=== PATIENT | male | born 1955 | race Caucasian/White ===

== ENCOUNTER 2022-10-11 20:49 | Inpatient (IN) | payer OTHER, MEDICAID ==
[~2022-10-11] VITALS: Ht 170.2 cm; Wt 55.1 kg
[~2022-10-11 20:49] MED LIST: TNFMISC; VICOT PO
[2022-10-11 22:12] LABS: COVID AG,FIA SOURCE NASOPHARYNGEAL
[2022-10-11 22:14] LABS: BASOPHILS % (AUTO) 0.2 % (0.0-2.0); EOSINOPHILS % (AUTO) 4.2 % (1.0-6.0); HEMOGLOBIN 10.2 g/dL (13.5-17.5); LYMPHOCYTES # (AUTO) 1.4 K/uL (1.0-4.8); LYMPHOCYTES % (AUTO) 17.8 % (22.0-44.0); MEAN CORPUSCULAR HEMOGLOBIN 27.6 pg (26.0-34.0); MEAN CORPUSCULAR HGB CONC 31.8 G/dL (31.0-37.0); MEAN CORPUSCULAR VOLUME 87 fL (80-100); MONOCYTES # (AUTO) 1.1 K/uL (0.1-1.0); MONOCYTES % (AUTO) 13.8 % (2.0-9.0); PLATELET COUNT (AUTO) 330 K/uL (150-450); RED BLOOD CELL COUNT(AUTO) 3.69 MIL/uL (4.50-5.90)
[2022-10-11 22:40] LABS: ANION GAP 10 mmol/L (8-16); CALCIUM, TOTAL 9.4 mg/dL (8.8-10.5); CARBON DIOXIDE 29 mmol/L (22-29); CHLORIDE 102 mmol/L (98-107); GLUCOSE,RANDOM 77 mg/dL (70-110); POTASSIUM 3.9 mmol/L (3.5-5.1); SODIUM SERUM 141 mmol/L (136-145); UREA NITROGEN, BLOOD 25 mg/dL (7-18)
[2022-10-11 22:41] LABS: GLOMERULAR FILTR. RATE CALC > 60 mL/min (>60)
[2022-10-11 22:45] LABS: ALANINE AMINOTRANSFERASE 20 U/L (12-78); ALBUMIN 2.9 g/dL (3.4-5.0); ALKALINE PHOSPHATASE 100 U/L (46-116); ASPARTATE AMINOTRANSFERASE 15 U/L (15-37); BILIRUBIN,TOTAL 0.1 mg/dL (0.1-1.0); TOTAL PROTEIN, SERUM 6.7 g/dL (6.4-8.2)
[2022-10-11] MEDS ORDERED: HALOPERIDOL LACTATE 5 MG/ML VIAL IM ONE (22:45)
[2022-10-11] MEDS ORDERED: DiphenhydrAMINE HCL 50 MG/ML VIAL IM ONE (22:45)
[2022-10-11] MEDS ORDERED: LORazepam 2 MG/ML VIAL IM ONE (22:45)
[2022-10-12 00:34] LABS: AMPHET/METH SCREEN,URINE NEGATIVE (NEGATIVE); BARBITURATE SCREEN, URINE NEGATIVE (NEGATIVE); BENZODIAZEPINES SCREEN,URINE NEGATIVE (NEGATIVE); CANNABINOID SCREEN,URINE NEGATIVE (NEGATIVE); COCAINE SCREEN,URINE NEGATIVE (NEGATIVE); METHADONE SCREEN, URINE NEGATIVE (NEGATIVE); OPIATE SCREEN,URINE NEGATIVE (NEGATIVE)
[2022-10-12 00:39] LABS: PHENCYCLIDINE SCREEN,URINE NEGATIVE (NEGATIVE)
[2022-10-12 01:17] VITALS: BP 135/79
[2022-10-12 01:37] VITALS: BP 135/79
[2022-10-12 02:09] VITALS: BP 135/79
[2022-10-12] MEDS ORDERED: NICOTINE 14 MG/24 HOUR PATCH TD PRN ×2 (06:00→07:00)
[2022-10-12] MEDS ORDERED: PETROLATUM,WHITE 28 GM JELLY TP PRN (07:00)
[2022-10-12] MEDS ORDERED: MAG HYDROX/AL HYDROX/SIMETH ES 30 ML SUSPENSION UDCUP PO PRN (07:00)
[2022-10-12] MEDS ORDERED: ACETAMINOPHEN 325 MG TABLET PO PRN (07:00)
[2022-10-12] MEDS ORDERED: ALBUTEROL SULFATE HFA 90 MCG/PUFF 8 GM INHALER IH PRN (07:00)
[2022-10-12] MEDS ORDERED: ONDANSETRON HCL 4 MG TABLET PO PRN (07:00)
[2022-10-12] MEDS ORDERED: GuaiFENesin/D-METHORPHAN [SUGAR-FREE] 200-20MG/10 ML SYRUP UDCUP PO PRN (07:00)
[2022-10-12] MEDS ORDERED: MAGNESIUM HYDROXIDE SUSPENSION 30 ML UDCUP PO PRN (07:00)
[2022-10-12] MEDS ORDERED: DOCUSATE SODIUM 100 MG CAPSULE PO PRN (07:00)
[2022-10-12] MEDS ORDERED: CloNIDine HCL 0.1 MG TABLET PO PRN (07:00)
[2022-10-12] MEDS ORDERED: IBUPROFEN 400 MG TABLET PO PRN (07:00)
[2022-10-12] MEDS ORDERED: LOPERAMIDE HCL 2 MG CAPSULE PO PRN (07:00)
[2022-10-12 13:50] VITALS: BP 123/80
[2022-10-12] MEDS: RisperiDONE 1 MG TABLET PO SCH (16:43)
[2022-10-13] MEDS: ZOLPIDEM TARTRATE 10 MG TABLET PO PRN (02:30)
[2022-10-13] MEDS: RisperiDONE 1 MG TABLET PO SCH ×2 (08:32→17:22)
[2022-10-13 08:42] VITALS: BP 139/80
[2022-10-13] MEDS: LORazepam 2 MG TABLET PO PRN (09:30)
[2022-10-13] MEDS ORDERED: ALBUTEROL SULFATE/IPRATROPIUM 100-20 MCG/SPRAY 4 GM INHALER IH PRN (13:15)
[2022-10-13 16:44] VITALS: BP 135/81
[2022-10-13] MEDS: LevETIRAcetam 500 MG TABLET PO SCH (17:22)
[2022-10-14] MEDS: LEVOTHYROXINE SODIUM 125 MCG TABLET PO SCH (06:30)
[2022-10-14 08:36] VITALS: BP 160/95
[2022-10-14] MEDS: RisperiDONE 1 MG TABLET PO SCH ×2 (09:34→16:29)
[2022-10-14] MEDS: LevETIRAcetam 500 MG TABLET PO SCH ×2 (09:34→16:29)
[2022-10-15] MEDS: LEVOTHYROXINE SODIUM 125 MCG TABLET PO SCH (06:38)
[2022-10-15 08:17] VITALS: BP 97/66
[2022-10-15] MEDS: RisperiDONE 1 MG TABLET PO SCH ×2 (09:43→17:10)
[2022-10-15] MEDS: LevETIRAcetam 500 MG TABLET PO SCH ×2 (09:43→17:00)
[2022-10-15] MEDS: HALOPERIDOL 5 MG TABLET PO PRN (20:02)
[2022-10-15] MEDS: LORazepam 2 MG TABLET PO PRN (20:02)
[2022-10-16] MEDS: LEVOTHYROXINE SODIUM 125 MCG TABLET PO SCH (06:47)
[2022-10-16 08:38] VITALS: BP 100/68
[2022-10-16] MEDS: RisperiDONE 1 MG TABLET PO SCH ×2 (09:00→16:25)
[2022-10-16] MEDS: LevETIRAcetam 500 MG TABLET PO SCH ×2 (09:00→16:25)
[2022-10-17] MEDS: HALOPERIDOL 5 MG TABLET PO PRN ×2 (02:30→20:33)
[2022-10-17] MEDS: LORazepam 2 MG TABLET PO PRN ×2 (02:30→20:33)
[2022-10-17] MEDS: LEVOTHYROXINE SODIUM 125 MCG TABLET PO SCH (06:40)
[2022-10-17 08:03] LABS: COVID AG,FIA SOURCE NASAL SWAB
[2022-10-17] MEDS: RisperiDONE 1 MG TABLET PO SCH ×2 (08:54→17:35)
[2022-10-17] MEDS: LevETIRAcetam 500 MG TABLET PO SCH ×2 (08:54→17:34)
[2022-10-17 13:29] VITALS: BP 120/73
[2022-10-17 16:20] VITALS: BP 105/63
[2022-10-17] MEDS: ZOLPIDEM TARTRATE 10 MG TABLET PO PRN (21:45)
[2022-10-18] MEDS: LEVOTHYROXINE SODIUM 125 MCG TABLET PO SCH (05:57)
[2022-10-18 08:24] VITALS: BP 94/62
[2022-10-18] MEDS: RisperiDONE 1 MG TABLET PO SCH ×2 (08:26→17:03)
[2022-10-18] MEDS: LevETIRAcetam 500 MG TABLET PO SCH ×2 (08:27→17:03)
[2022-10-18 16:21] VITALS: BP 131/91
[2022-10-18 20:49] VITALS: BP 116/75
[2022-10-18] MEDS: LORazepam 2 MG TABLET PO PRN (22:39)
[2022-10-18] MEDS: HALOPERIDOL 5 MG TABLET PO PRN (22:39)
[2022-10-19] MEDS: LEVOTHYROXINE SODIUM 125 MCG TABLET PO SCH (06:47)
[2022-10-19 08:30] VITALS: BP 110/67
[2022-10-19] MEDS: RisperiDONE 1 MG TABLET PO SCH ×2 (09:37→17:24)
[2022-10-19] MEDS: LevETIRAcetam 500 MG TABLET PO SCH ×2 (09:37→17:24)
[2022-10-19] MEDS: LORazepam 2 MG TABLET PO PRN (23:29)
[2022-10-20] MEDS: LEVOTHYROXINE SODIUM 125 MCG TABLET PO SCH (06:50)
[2022-10-20] MEDS: LevETIRAcetam 500 MG TABLET PO SCH ×2 (09:00→17:31)
[2022-10-20] MEDS: RisperiDONE 1 MG TABLET PO SCH ×2 (09:00→17:31)
[2022-10-20 16:02] VITALS: BP 122/76
[2022-10-20] MEDS: LORazepam 2 MG TABLET PO PRN (19:15)
[2022-10-20] MEDS: HALOPERIDOL 5 MG TABLET PO PRN (19:15)
[2022-10-20] MEDS: ZOLPIDEM TARTRATE 10 MG TABLET PO PRN (21:43)
[2022-10-21] MEDS: LEVOTHYROXINE SODIUM 125 MCG TABLET PO SCH (06:17)
[2022-10-21 08:21] VITALS: BP 115/78
[2022-10-21] MEDS: RisperiDONE 1 MG TABLET PO SCH ×2 (09:19→16:22)
[2022-10-21] MEDS: LevETIRAcetam 500 MG TABLET PO SCH ×2 (09:19→16:22)
[2022-10-21 16:10] VITALS: BP 131/83
[2022-10-21 19:21] LABS: GLUCOMETER DEV NAME(LOC) 3EX.2; GLUCOSE,POINT OF CARE 166 MG/DL (70-110)
[2022-10-21] MEDS ORDERED: SCOPOLAMINE HYDROBROMIDE 1 MG/72 HOUR PATCH TD SCH (20:00)
[2022-10-21] MEDS: ZOLPIDEM TARTRATE 10 MG TABLET PO PRN (20:56)
[2022-10-21] MEDS: SCOPOLAMINE HYDROBROMIDE 1 MG/72 HOUR PATCH TD SCH (20:57)
[2022-10-22 00:30] VITALS: BP 124/79
[2022-10-22] MEDS: LEVOTHYROXINE SODIUM 125 MCG TABLET PO SCH (06:12)
[2022-10-22] MEDS: RisperiDONE 1 MG TABLET PO SCH ×2 (08:39→17:01)
[2022-10-22] MEDS: LevETIRAcetam 500 MG TABLET PO SCH ×2 (08:40→17:01)
[2022-10-22 09:02] VITALS: BP 109/65
[2022-10-22 16:46] VITALS: BP 113/77
[2022-10-22] MEDS: ZOLPIDEM TARTRATE 10 MG TABLET PO PRN (23:34)
[2022-10-23] MEDS: LEVOTHYROXINE SODIUM 125 MCG TABLET PO SCH (06:23)
[2022-10-23 08:22] VITALS: BP 113/64
[2022-10-23] MEDS: LevETIRAcetam 500 MG TABLET PO SCH ×2 (09:05→17:38)
[2022-10-23] MEDS: RisperiDONE 1 MG TABLET PO SCH ×2 (09:07→17:38)
[2022-10-23 13:17] VITALS: BP 158/78
[2022-10-23 14:17] VITALS: BP 91/59
[2022-10-23 16:04] VITALS: BP 114/75
[2022-10-23] MEDS: ZOLPIDEM TARTRATE 10 MG TABLET PO PRN (21:55)
[2022-10-24] MEDS: LEVOTHYROXINE SODIUM 125 MCG TABLET PO SCH (06:28)
[2022-10-24 08:02] LABS: COVID AG,FIA SOURCE NASAL SWAB
[2022-10-24] MEDS: RisperiDONE 1 MG TABLET PO SCH ×2 (09:11→17:00)
[2022-10-24] MEDS: LevETIRAcetam 500 MG TABLET PO SCH ×2 (09:11→17:00)
[2022-10-24] MEDS: SCOPOLAMINE HYDROBROMIDE 1 MG/72 HOUR PATCH TD SCH (09:13)
[2022-10-24 16:10] VITALS: BP 116/71
[2022-10-24 20:53] LABS: GLUCOMETER DEV NAME(LOC) 3E.I 2; GLUCOSE,POINT OF CARE 149 MG/DL (70-110)
[2022-10-24] MEDS ORDERED: LEVO125 PO ×2 (21:23→21:24)
[2022-10-24] MEDS ORDERED: LEVE500T20 PO ×2 (21:24→21:25)
[2022-10-24] MEDS ORDERED: MULT-1239 PO (21:25)
[2022-10-24] MEDS ORDERED: SCOP1PAT12 TP (21:26)
[2022-10-24] MEDS ORDERED: RISP2TAB45 PO (21:28)
[2022-10-25] MEDS ORDERED: MULTIVITAMINS WITH MINERALS, THERAPEUTIC TABLET PO SCH (09:00)
== END 2022-10-24 21:25 | disposition short-term general hospital (02) | DRG 885 ==
LOC: EMS 20:56 → 3EX 10-12 00:36
PROVIDERS: ADMIT Psychiatry & Neurology Child & Adolescent Psychiatry; ATTEND Psychiatry & Neurology Child & Adolescent Psychiatry
DX: F20.0 Paranoid schizophrenia (principal); E43 Unspecified severe protein-calorie malnutrition; J96.91 Respiratory failure, unspecified with hypoxia; Z68.1 Body mass index [BMI] 19.9 or less, adult; Z20.822 Contact with and (suspected) exposure to COVID-19; G40.909 Epilepsy, unspecified, not intractable, without status epilepticus; I95.9 Hypotension, unspecified; E11.9 Type 2 diabetes mellitus without complications; D64.9 Anemia, unspecified; Z88.0 Allergy status to penicillin; Z72.0 Tobacco use; Z71.6 Tobacco abuse counseling; J45.909 Unspecified asthma, uncomplicated
CPT/HCPCS: 74230; 80053; 80307; 82962; 85025; 87081; 92610; 92611; 99285; G0378; G0480; J1200; J1630; J2060

== ENCOUNTER 2022-10-24 21:39 | Inpatient (IN) | payer OTHER ==
[~2022-10-24] VITALS: Ht 170.2 cm; Wt 69.4 kg
[~2022-10-24 21:39] MED LIST changes: +LEVE500T20 PO; +LEVO125 PO; +MULT-1239 PO; +RISP2TAB45 PO; +SCOP1PAT12 TP
[2022-10-24] MEDS ORDERED: ZOLPIDEM TARTRATE 5 MG TABLET PO PRN (22:00)
[2022-10-24] MEDS ORDERED: MAGNESIUM HYDROXIDE SUSPENSION 30 ML UDCUP PO PRN (22:00)
[2022-10-24] MEDS ORDERED: MAGNESIUM SULFATE 2 GM, MVI, ADULT NO.1 WITH VIT K 10 ML, THIAMINE 100 MG, FOLIC ACID 1... IV ONE ×5 (22:00)
[2022-10-24] MEDS ORDERED: ONDANSETRON HCL 4 MG/2 ML VIAL IVP PRN (22:00)
[2022-10-24] MEDS ORDERED: BISACODYL 10 MG RECTAL RECTAL SUPPOSITORY PR PRN (22:00)
[2022-10-24] MEDS ORDERED: MORPHINE SULFATE 2 MG/ML SYRINGE IVP PRN (22:00)
[2022-10-24] MEDS: CLINDAMYCIN 600 MG/D5% WATER 50 ML IV SCH (22:58)
[2022-10-24] MEDS ORDERED: SODIUM CHLORIDE 0.9% 250 ML IV ONE (23:00)
[2022-10-24] MEDS: ALBUTEROL SULFATE 2.5 MG/0.5 ML NEB SOLUTION NEB PRN (23:31)
[2022-10-24] MEDS: HEPARIN SODIUM,PORCINE 5,000 UNITS/ML VIAL SQ SCH (23:48)
[2022-10-25] MEDS: CLINDAMYCIN 600 MG/D5% WATER 50 ML IV SCH ×2 (05:20→15:01)
[2022-10-25 06:15] LABS: ANION GAP 3 mmol/L (8-16); CALCIUM, TOTAL 8.5 mg/dL (8.8-10.5); CARBON DIOXIDE 28 mmol/L (22-29); CHLORIDE 104 mmol/L (98-107); CREATININE 0.91 mg/dL (0.60-1.30); GLUCOSE,RANDOM 127 mg/dL (70-110); POTASSIUM 4.3 mmol/L (3.5-5.1); SODIUM SERUM 135 mmol/L (136-145); UREA NITROGEN, BLOOD 30 mg/dL (7-18)
[2022-10-25 06:19] LABS: GLOMERULAR FILTR. RATE CALC > 60 mL/min (>60)
[2022-10-25] MEDS: LEVOTHYROXINE SODIUM 125 MCG TABLET PO SCH (06:30)
[2022-10-25 06:32] LABS: BASOPHILS % (AUTO) 0.1 % (0.0-2.0); EOSINOPHILS % (AUTO) 0.1 % (1.0-6.0); HEMATOCRIT 36.8 % (41-53); HEMOGLOBIN 12.1 g/dL (13.5-17.5); LYMPHOCYTES # (AUTO) 0.4 K/uL (1.0-4.8); LYMPHOCYTES % (AUTO) 4.1 % (22.0-44.0); MEAN CORPUSCULAR HEMOGLOBIN 28.5 pg (26.0-34.0); MEAN CORPUSCULAR HGB CONC 32.8 G/dL (31.0-37.0); MEAN CORPUSCULAR VOLUME 87 fL (80-100); MONOCYTES # (AUTO) 0.9 K/uL (0.1-1.0); MONOCYTES % (AUTO) 9.5 % (2.0-9.0); NEUTROPHILS # (AUTO) 8.5 K/uL (1.8-7.7); PLATELET COUNT (AUTO) 277 K/uL (150-450); RED BLOOD CELL COUNT(AUTO) 4.24 MIL/uL (4.50-5.90); RED CELL DISTRIBUTION WIDTH 14.6 % (11.5-14.5)
[2022-10-25 06:47] LABS: NEUTROPHILS % (AUTO) 86.2 % (40.0-70.0)
[2022-10-25] MEDS: PANTOPRAZOLE SODIUM 40 MG DR TABLET PO SCH (09:00)
[2022-10-25] MEDS: DOCUSATE SODIUM 100 MG CAPSULE PO SCH ×2 (09:00→21:39)
[2022-10-25] MEDS: ETHYL ALCOHOL 62% ANTISEPTIC NASAL SANITIZER 0.6 ML AMPUL NASAL SCH ×2 (09:16→21:39)
[2022-10-25] MEDS: LevETIRAcetam 500 MG TABLET PO SCH ×2 (09:16→21:39)
[2022-10-25] MEDS: HEPARIN SODIUM,PORCINE 5,000 UNITS/ML VIAL SQ SCH ×3 (09:16→23:54)
[2022-10-25] MEDS: SCOPOLAMINE HYDROBROMIDE 1 MG/72 HOUR PATCH TP SCH (09:17)
[2022-10-25 17:05] LABS: ABG BASE EXCESS 1.4 mmol/L (-2.0-3.0); ABG CARBOXYHEMOGLOBIN 0.8 % (0.0-1.5); ABG HCO3 25.7 mmol/L (22.0-26.0); ABG METHEMOGLOBIN 0.3 % (0.0-1.5); ABG OXYGEN SATURATION 91.2 % (95.0-98.0); ABG OXYHEMOGLOBIN 90.2 % (94.0-100.0); ABG PCO2 37 mmHg (35-45); ABG PH 7.454 (7.35-7.450); ABG TOTAL HEMOGLOBIN 11.8 G/dL (12.0-18.0); PO2, ARTERIAL BG 57.7 mmHg (79.0-87.0); SOURCE, BLOOD GAS ARTERIAL
[2022-10-25 17:06] LABS: ABG A-A DIFF O2 47.9 mmHg (10-20.0); SITE, BLOOD GAS RT RADIAL
[2022-10-25 17:07] LABS: O2 DEVICE,BLOOD GAS ROOM AIR (ROOM AIR)
[2022-10-25 19:55] VITALS: BP 153/86
[2022-10-25] MEDS ORDERED: SODIUM CL IRRIG SOLN BOTTLE 250 ML IRRIG ONE (20:41)
[2022-10-25] MEDS: BUDESONIDE 0.5 MG/2 ML NEB SOLUTION NEB SCH (21:00)
[2022-10-26 00:08] LABS: COVID AG,FIA SOURCE NASAL SWAB
[2022-10-26 05:56] VITALS: BP 131/66
[2022-10-26] MEDS: LEVOTHYROXINE SODIUM 125 MCG TABLET PO SCH (05:59)
[2022-10-26 06:50] LABS: BASOPHILS % (AUTO) 0.2 % (0.0-2.0); EOSINOPHILS % (AUTO) 0.7 % (1.0-6.0); HEMATOCRIT 33.7 % (41-53); HEMOGLOBIN 11.1 g/dL (13.5-17.5); LYMPHOCYTES # (AUTO) 0.8 K/uL (1.0-4.8); LYMPHOCYTES % (AUTO) 3.9 % (22.0-44.0); MEAN CORPUSCULAR HEMOGLOBIN 27.8 pg (26.0-34.0); MEAN CORPUSCULAR VOLUME 84 fL (80-100); MONOCYTES # (AUTO) 1.3 K/uL (0.1-1.0); MONOCYTES % (AUTO) 6.5 % (2.0-9.0); NEUTROPHILS # (AUTO) 17.5 K/uL (1.8-7.7); PLATELET COUNT (AUTO) 245 K/uL (150-450); RED BLOOD CELL COUNT(AUTO) 3.99 MIL/uL (4.50-5.90); RED CELL DISTRIBUTION WIDTH 14.5 % (11.5-14.5)
[2022-10-26 07:20] LABS: NEUTROPHILS % (AUTO) 88.7 % (40.0-70.0)
[2022-10-26 07:26] LABS: ANION GAP 5 mmol/L (8-16); CALCIUM, TOTAL 8.8 mg/dL (8.8-10.5); CARBON DIOXIDE 28 mmol/L (22-29); CHLORIDE 103 mmol/L (98-107); CREATININE 0.77 mg/dL (0.60-1.30); GLUCOSE,RANDOM 108 mg/dL (70-110); POTASSIUM 4.1 mmol/L (3.5-5.1); SODIUM SERUM 136 mmol/L (136-145); UREA NITROGEN, BLOOD 25 mg/dL (7-18)
[2022-10-26 07:28] LABS: GLOMERULAR FILTR. RATE CALC > 60 mL/min (>60)
[2022-10-26 08:00] VITALS: BP 109/64
[2022-10-26] MEDS: DOCUSATE SODIUM 100 MG CAPSULE PO SCH ×2 (08:17→22:20)
[2022-10-26] MEDS: PANTOPRAZOLE SODIUM 40 MG DR TABLET PO SCH (08:17)
[2022-10-26] MEDS: LevETIRAcetam 500 MG TABLET PO SCH ×2 (08:18→22:20)
[2022-10-26] MEDS: HEPARIN SODIUM,PORCINE 5,000 UNITS/ML VIAL SQ SCH ×3 (08:20→16:20)
[2022-10-26] MEDS: BUDESONIDE 0.5 MG/2 ML NEB SOLUTION NEB SCH ×2 (08:23→20:34)
[2022-10-26] MEDS: ETHYL ALCOHOL 62% ANTISEPTIC NASAL SANITIZER 0.6 ML AMPUL NASAL SCH ×2 (10:03→22:21)
[2022-10-26 16:15] VITALS: BP 102/53
[2022-10-26] MEDS: RisperiDONE CONC 1 MG/ML SOLUTION ORAL.SYG PO SCH ×2 (16:20→22:21)
[2022-10-26] MEDS: CLINDAMYCIN HCL 300 MG CAPSULE PO SCH ×2 (16:20→22:20)
[2022-10-26 20:00] VITALS: BP 122/74
[2022-10-27] MEDS: HEPARIN SODIUM,PORCINE 5,000 UNITS/ML VIAL SQ SCH ×5 (00:37→23:45)
[2022-10-27 04:04] VITALS: BP 128/63
[2022-10-27] MEDS: LEVOTHYROXINE SODIUM 125 MCG TABLET PO SCH ×3 (06:09→06:30)
[2022-10-27 07:13] LABS: BASOPHILS % (AUTO) 0.3 % (0.0-2.0); EOSINOPHILS % (AUTO) 0.4 % (1.0-6.0); HEMATOCRIT 31.3 % (41-53); HEMOGLOBIN 10.3 g/dL (13.5-17.5); LYMPHOCYTES # (AUTO) 0.9 K/uL (1.0-4.8); LYMPHOCYTES % (AUTO) 4.5 % (22.0-44.0); MEAN CORPUSCULAR HEMOGLOBIN 28.1 pg (26.0-34.0); MEAN CORPUSCULAR VOLUME 85 fL (80-100); NEUTROPHILS # (AUTO) 18.6 K/uL (1.8-7.7); PLATELET COUNT (AUTO) 237 K/uL (150-450); RED BLOOD CELL COUNT(AUTO) 3.68 MIL/uL (4.50-5.90); RED CELL DISTRIBUTION WIDTH 14.5 % (11.5-14.5)
[2022-10-27 07:15] LABS: ANION GAP 9 mmol/L (8-16); CALCIUM, TOTAL 8.9 mg/dL (8.8-10.5); CARBON DIOXIDE 26 mmol/L (22-29); CHLORIDE 104 mmol/L (98-107); GLUCOSE,RANDOM 107 mg/dL (70-110); POTASSIUM 3.7 mmol/L (3.5-5.1); SODIUM SERUM 139 mmol/L (136-145); UREA NITROGEN, BLOOD 21 mg/dL (7-18)
[2022-10-27 07:17] LABS: GLOMERULAR FILTR. RATE CALC > 60 mL/min (>60); NEUTROPHILS % (AUTO) 89.8 % (40.0-70.0)
[2022-10-27 08:13] VITALS: BP 106/52
[2022-10-27] MEDS: PANTOPRAZOLE SODIUM 40 MG DR TABLET PO SCH (08:23)
[2022-10-27] MEDS: CLINDAMYCIN HCL 300 MG CAPSULE PO SCH ×3 (08:24→20:13)
[2022-10-27] MEDS: DOCUSATE SODIUM 100 MG CAPSULE PO SCH ×2 (08:24→20:14)
[2022-10-27] MEDS: ETHYL ALCOHOL 62% ANTISEPTIC NASAL SANITIZER 0.6 ML AMPUL NASAL SCH ×2 (08:24→20:13)
[2022-10-27] MEDS: RisperiDONE CONC 1 MG/ML SOLUTION ORAL.SYG PO SCH ×2 (08:24→20:13)
[2022-10-27] MEDS: LevETIRAcetam 500 MG TABLET PO SCH ×2 (08:24→20:13)
[2022-10-27] MEDS: HYDROCODONE/ACETAMINOPHEN 5-325 MG TABLET PO PRN (08:36)
[2022-10-27] MEDS: BUDESONIDE 0.5 MG/2 ML NEB SOLUTION NEB SCH ×2 (08:47→20:38)
[2022-10-27 12:06] LABS: GLUCOMETER DEV NAME(LOC) 6N.2B; GLUCOSE,POINT OF CARE 114 MG/DL (70-110)
[2022-10-27 12:21] LABS: THYROID STIMULATING HORMONE 6.27 uIU/mL (0.36-3.74)
[2022-10-27 15:51] VITALS: BP 113/61
[2022-10-27 20:00] VITALS: BP 110/62
[2022-10-27] MEDS: ACETAMINOPHEN 325 MG TABLET PO PRN (20:13)
[2022-10-28] MEDS: LEVOTHYROXINE SODIUM 125 MCG TABLET PO SCH (06:01)
[2022-10-28] MEDS: HYDROCODONE/ACETAMINOPHEN 5-325 MG TABLET PO PRN (06:01)
[2022-10-28 06:03] VITALS: BP 113/62
[2022-10-28 07:27] LABS: MAGNESIUM 1.7 mg/dL (1.80-2.40)
[2022-10-28 07:41] VITALS: BP 95/51
[2022-10-28] MEDS: BUDESONIDE 0.5 MG/2 ML NEB SOLUTION NEB SCH ×2 (08:17→21:00)
[2022-10-28] MEDS ORDERED: MAGNESIUM OXIDE 400 MG TABLET PO ONE (08:45)
[2022-10-28] MEDS: MULTIVITAMINS WITH MINERALS, THERAPEUTIC TABLET PO SCH (09:53)
[2022-10-28] MEDS: RisperiDONE CONC 1 MG/ML SOLUTION ORAL.SYG PO SCH ×2 (09:54→20:41)
[2022-10-28] MEDS: LevETIRAcetam 500 MG TABLET PO SCH ×2 (09:54→20:40)
[2022-10-28] MEDS: CLINDAMYCIN HCL 300 MG CAPSULE PO SCH ×3 (09:55→20:40)
[2022-10-28] MEDS: PANTOPRAZOLE SODIUM 40 MG DR TABLET PO SCH (09:55)
[2022-10-28] MEDS: DOCUSATE SODIUM 100 MG CAPSULE PO SCH ×2 (09:56→20:40)
[2022-10-28] MEDS: FOLIC ACID 1 MG TABLET PO SCH (09:56)
[2022-10-28] MEDS: HEPARIN SODIUM,PORCINE 5,000 UNITS/ML VIAL SQ SCH ×2 (09:57→15:46)
[2022-10-28] MEDS: THIAMINE 100 MG TABLET PO SCH (09:57)
[2022-10-28] MEDS: SCOPOLAMINE HYDROBROMIDE 1 MG/72 HOUR PATCH TP SCH (09:57)
[2022-10-28] MEDS: ETHYL ALCOHOL 62% ANTISEPTIC NASAL SANITIZER 0.6 ML AMPUL NASAL SCH ×2 (09:59→20:40)
[2022-10-28 15:47] VITALS: BP 147/116
[2022-10-28 19:45] VITALS: BP 139/88
[2022-10-29] MEDS: HEPARIN SODIUM,PORCINE 5,000 UNITS/ML VIAL SQ SCH ×3 (00:23→16:20)
[2022-10-29 04:25] VITALS: BP 110/55
[2022-10-29] MEDS: LEVOTHYROXINE SODIUM 125 MCG TABLET PO SCH (05:30)
[2022-10-29] MEDS: HYDROCODONE/ACETAMINOPHEN 5-325 MG TABLET PO PRN ×2 (05:31→20:54)
[2022-10-29 07:45] LABS: BASOPHILS % (AUTO) 0.3 % (0.0-2.0); EOSINOPHILS % (AUTO) 3.2 % (1.0-6.0); HEMATOCRIT 31.4 % (41-53); HEMOGLOBIN 10.3 g/dL (13.5-17.5); LYMPHOCYTES # (AUTO) 1.1 K/uL (1.0-4.8); LYMPHOCYTES % (AUTO) 11.5 % (22.0-44.0); MEAN CORPUSCULAR HEMOGLOBIN 28.1 pg (26.0-34.0); MEAN CORPUSCULAR HGB CONC 32.9 G/dL (31.0-37.0); MEAN CORPUSCULAR VOLUME 85 fL (80-100); MONOCYTES # (AUTO) 1.2 K/uL (0.1-1.0); MONOCYTES % (AUTO) 13.2 % (2.0-9.0); NEUTROPHILS # (AUTO) 6.7 K/uL (1.8-7.7); NEUTROPHILS % (AUTO) 71.8 % (40.0-70.0); PLATELET COUNT (AUTO) 243 K/uL (150-450); RED BLOOD CELL COUNT(AUTO) 3.67 MIL/uL (4.50-5.90); RED CELL DISTRIBUTION WIDTH 14.8 % (11.5-14.5)
[2022-10-29 08:09] VITALS: BP 120/73
[2022-10-29] MEDS: DOCUSATE SODIUM 100 MG CAPSULE PO SCH ×2 (08:45→20:05)
[2022-10-29] MEDS: PANTOPRAZOLE SODIUM 40 MG DR TABLET PO SCH (08:46)
[2022-10-29] MEDS: FOLIC ACID 1 MG TABLET PO SCH (08:46)
[2022-10-29] MEDS: LevETIRAcetam 500 MG TABLET PO SCH (08:46)
[2022-10-29] MEDS: THIAMINE 100 MG TABLET PO SCH (08:46)
[2022-10-29] MEDS: MULTIVITAMINS WITH MINERALS, THERAPEUTIC TABLET PO SCH (08:46)
[2022-10-29] MEDS: BUDESONIDE 0.5 MG/2 ML NEB SOLUTION NEB SCH ×2 (09:24→20:31)
[2022-10-29] MEDS: ETHYL ALCOHOL 62% ANTISEPTIC NASAL SANITIZER 0.6 ML AMPUL NASAL SCH ×2 (09:52→20:04)
[2022-10-29] MEDS: CLINDAMYCIN HCL 300 MG CAPSULE PO SCH ×3 (10:00→20:05)
[2022-10-29] MEDS: RisperiDONE CONC 1 MG/ML SOLUTION ORAL.SYG PO SCH ×2 (10:01→20:05)
[2022-10-29 16:07] VITALS: BP 109/68
[2022-10-29 19:43] VITALS: BP 118/67
[2022-10-29] MEDS: ALBUTEROL SULFATE 2.5 MG/0.5 ML NEB SOLUTION NEB PRN (20:31)
[2022-10-29] MEDS: LevETIRAcetam 100 MG/ML 5 ML SOLUTION UDCUP PO SCH (20:45)
[2022-10-30 04:26] VITALS: BP 96/56
[2022-10-30] MEDS: HYDROCODONE/ACETAMINOPHEN 5-325 MG TABLET PO PRN ×2 (05:09→21:30)
[2022-10-30] MEDS: LEVOTHYROXINE SODIUM 125 MCG TABLET PO SCH (05:32)
[2022-10-30 08:13] VITALS: BP 102/55
[2022-10-30] MEDS: ETHYL ALCOHOL 62% ANTISEPTIC NASAL SANITIZER 0.6 ML AMPUL NASAL SCH ×2 (08:47→20:12)
[2022-10-30] MEDS: FOLIC ACID 1 MG TABLET PO SCH (08:48)
[2022-10-30] MEDS: MULTIVITAMINS WITH MINERALS, THERAPEUTIC TABLET PO SCH (08:48)
[2022-10-30] MEDS: DOCUSATE SODIUM 100 MG CAPSULE PO SCH ×2 (08:48→20:14)
[2022-10-30] MEDS: HEPARIN SODIUM,PORCINE 5,000 UNITS/ML VIAL SQ SCH ×3 (08:48→15:03)
[2022-10-30] MEDS: CLINDAMYCIN HCL 300 MG CAPSULE PO SCH ×3 (08:48→20:13)
[2022-10-30] MEDS: RisperiDONE CONC 1 MG/ML SOLUTION ORAL.SYG PO SCH ×2 (08:49→20:18)
[2022-10-30] MEDS: THIAMINE 100 MG TABLET PO SCH (08:49)
[2022-10-30] MEDS: LevETIRAcetam 100 MG/ML 5 ML SOLUTION UDCUP PO SCH ×2 (08:49→20:18)
[2022-10-30] MEDS: PANTOPRAZOLE SODIUM 40 MG DR TABLET PO SCH (09:00)
[2022-10-30] MEDS: BUDESONIDE 0.5 MG/2 ML NEB SOLUTION NEB SCH ×2 (09:26→21:31)
[2022-10-30 16:08] VITALS: BP 125/71
[2022-10-30 19:38] VITALS: BP 96/63
[2022-10-31] MEDS: HEPARIN SODIUM,PORCINE 5,000 UNITS/ML VIAL SQ SCH ×4 (00:13→23:47)
[2022-10-31 04:52] VITALS: BP 98/56
[2022-10-31] MEDS ORDERED: SODIUM CL IRRIG SOLN BOTTLE 250 ML IRRIG ONE (05:02)
[2022-10-31] MEDS: LEVOTHYROXINE SODIUM 125 MCG TABLET PO SCH (06:07)
[2022-10-31 08:05] VITALS: BP 97/57
[2022-10-31] MEDS: BUDESONIDE 0.5 MG/2 ML NEB SOLUTION NEB SCH ×2 (08:21→20:51)
[2022-10-31] MEDS: THIAMINE 100 MG TABLET PO SCH (08:38)
[2022-10-31] MEDS: DOCUSATE SODIUM 100 MG CAPSULE PO SCH ×2 (08:38→20:11)
[2022-10-31] MEDS: PANTOPRAZOLE SODIUM 40 MG DR TABLET PO SCH (08:38)
[2022-10-31] MEDS: MULTIVITAMINS WITH MINERALS, THERAPEUTIC TABLET PO SCH (08:38)
[2022-10-31] MEDS: FOLIC ACID 1 MG TABLET PO SCH (08:39)
[2022-10-31] MEDS: RisperiDONE CONC 1 MG/ML SOLUTION ORAL.SYG PO SCH ×2 (08:39→20:12)
[2022-10-31] MEDS: LevETIRAcetam 100 MG/ML 5 ML SOLUTION UDCUP PO SCH ×2 (08:39→20:12)
[2022-10-31] MEDS: SCOPOLAMINE HYDROBROMIDE 1 MG/72 HOUR PATCH TP SCH (08:39)
[2022-10-31] MEDS: ETHYL ALCOHOL 62% ANTISEPTIC NASAL SANITIZER 0.6 ML AMPUL NASAL SCH ×2 (08:46→20:09)
[2022-10-31 16:01] VITALS: BP 102/59
[2022-10-31 19:49] VITALS: BP 109/63
[2022-11-01 04:28] VITALS: BP 116/62
[2022-11-01] MEDS: LEVOTHYROXINE SODIUM 125 MCG TABLET PO SCH (05:52)
[2022-11-01 07:51] VITALS: BP 103/57
[2022-11-01] MEDS: BUDESONIDE 0.5 MG/2 ML NEB SOLUTION NEB SCH ×2 (08:46→21:00)
[2022-11-01] MEDS: RisperiDONE CONC 1 MG/ML SOLUTION ORAL.SYG PO SCH ×2 (09:05→20:07)
[2022-11-01] MEDS: LevETIRAcetam 100 MG/ML 5 ML SOLUTION UDCUP PO SCH ×2 (09:05→20:07)
[2022-11-01] MEDS: FOLIC ACID 1 MG TABLET PO SCH (09:06)
[2022-11-01] MEDS: PANTOPRAZOLE SODIUM 40 MG DR TABLET PO SCH (09:06)
[2022-11-01] MEDS: DOCUSATE SODIUM 100 MG CAPSULE PO SCH ×2 (09:06→20:07)
[2022-11-01] MEDS: THIAMINE 100 MG TABLET PO SCH (09:06)
[2022-11-01] MEDS: MULTIVITAMINS WITH MINERALS, THERAPEUTIC TABLET PO SCH (09:06)
[2022-11-01] MEDS: HEPARIN SODIUM,PORCINE 5,000 UNITS/ML VIAL SQ SCH ×2 (09:06→16:53)
[2022-11-01] MEDS: ETHYL ALCOHOL 62% ANTISEPTIC NASAL SANITIZER 0.6 ML AMPUL NASAL SCH ×2 (10:48→20:07)
[2022-11-01 20:05] VITALS: BP 116/68
[2022-11-02] MEDS: HEPARIN SODIUM,PORCINE 5,000 UNITS/ML VIAL SQ SCH ×4 (00:06→23:31)
[2022-11-02] MEDS: HYDROCODONE/ACETAMINOPHEN 5-325 MG TABLET PO PRN ×2 (02:35→20:58)
[2022-11-02 02:36] VITALS: BP 107/61
[2022-11-02] MEDS: LEVOTHYROXINE SODIUM 125 MCG TABLET PO SCH (06:23)
[2022-11-02] MEDS: BUDESONIDE 0.5 MG/2 ML NEB SOLUTION NEB SCH ×2 (08:22→21:41)
[2022-11-02 08:37] VITALS: BP 106/54
[2022-11-02] MEDS: FOLIC ACID 1 MG TABLET PO SCH (08:49)
[2022-11-02] MEDS: THIAMINE 100 MG TABLET PO SCH (08:49)
[2022-11-02] MEDS: ETHYL ALCOHOL 62% ANTISEPTIC NASAL SANITIZER 0.6 ML AMPUL NASAL SCH ×2 (08:49→20:58)
[2022-11-02] MEDS: MULTIVITAMINS WITH MINERALS, THERAPEUTIC TABLET PO SCH (08:49)
[2022-11-02] MEDS: PANTOPRAZOLE SODIUM 40 MG DR TABLET PO SCH (08:49)
[2022-11-02] MEDS: LevETIRAcetam 100 MG/ML 5 ML SOLUTION UDCUP PO SCH ×2 (08:49→20:58)
[2022-11-02] MEDS: DOCUSATE SODIUM 100 MG CAPSULE PO SCH ×2 (08:49→20:58)
[2022-11-02] MEDS: RisperiDONE CONC 1 MG/ML SOLUTION ORAL.SYG PO SCH ×2 (09:01→20:58)
[2022-11-02 15:58] VITALS: BP 121/72
[2022-11-02 20:57] VITALS: BP 116/72
[2022-11-03 04:40] VITALS: BP 141/81
[2022-11-03] MEDS: LEVOTHYROXINE SODIUM 125 MCG TABLET PO SCH (06:26)
[2022-11-03] MEDS: BUDESONIDE 0.5 MG/2 ML NEB SOLUTION NEB SCH ×2 (08:00→21:53)
[2022-11-03] MEDS: FOLIC ACID 1 MG TABLET PO SCH (08:01)
[2022-11-03] MEDS: HEPARIN SODIUM,PORCINE 5,000 UNITS/ML VIAL SQ SCH ×4 (08:01→23:11)
[2022-11-03] MEDS: THIAMINE 100 MG TABLET PO SCH (08:01)
[2022-11-03] MEDS: RisperiDONE CONC 1 MG/ML SOLUTION ORAL.SYG PO SCH ×2 (08:01→20:02)
[2022-11-03] MEDS: LevETIRAcetam 100 MG/ML 5 ML SOLUTION UDCUP PO SCH ×2 (08:01→20:02)
[2022-11-03] MEDS: ETHYL ALCOHOL 62% ANTISEPTIC NASAL SANITIZER 0.6 ML AMPUL NASAL SCH ×2 (08:01→20:02)
[2022-11-03] MEDS: PANTOPRAZOLE SODIUM 40 MG DR TABLET PO SCH (08:01)
[2022-11-03] MEDS: SCOPOLAMINE HYDROBROMIDE 1 MG/72 HOUR PATCH TP SCH (08:01)
[2022-11-03] MEDS: MULTIVITAMINS WITH MINERALS, THERAPEUTIC TABLET PO SCH (08:01)
[2022-11-03] MEDS: DOCUSATE SODIUM 100 MG CAPSULE PO SCH ×2 (08:02→20:02)
[2022-11-03 08:25] VITALS: BP 116/66
[2022-11-03 15:55] VITALS: BP 113/71
[2022-11-03] MEDS: HYDROCODONE/ACETAMINOPHEN 5-325 MG TABLET PO PRN ×2 (18:36→21:15)
[2022-11-03 20:07] VITALS: BP 134/72
[2022-11-04] MEDS: ACETAMINOPHEN 325 MG TABLET PO PRN (00:36)
[2022-11-04 04:20] VITALS: BP 130/76
[2022-11-04] MEDS: LEVOTHYROXINE SODIUM 125 MCG TABLET PO SCH (05:46)
[2022-11-04 07:41] VITALS: BP 131/75
[2022-11-04] MEDS: THIAMINE 100 MG TABLET PO SCH (08:55)
[2022-11-04] MEDS: FOLIC ACID 1 MG TABLET PO SCH (08:55)
[2022-11-04] MEDS: HEPARIN SODIUM,PORCINE 5,000 UNITS/ML VIAL SQ SCH ×3 (08:55→23:41)
[2022-11-04] MEDS: PANTOPRAZOLE SODIUM 40 MG DR TABLET PO SCH (08:55)
[2022-11-04] MEDS: LevETIRAcetam 100 MG/ML 5 ML SOLUTION UDCUP PO SCH ×2 (08:55→20:13)
[2022-11-04] MEDS: MULTIVITAMINS WITH MINERALS, THERAPEUTIC TABLET PO SCH (08:55)
[2022-11-04] MEDS: DOCUSATE SODIUM 100 MG CAPSULE PO SCH ×2 (08:55→20:13)
[2022-11-04] MEDS: RisperiDONE CONC 1 MG/ML SOLUTION ORAL.SYG PO SCH ×2 (08:55→20:13)
[2022-11-04] MEDS: ETHYL ALCOHOL 62% ANTISEPTIC NASAL SANITIZER 0.6 ML AMPUL NASAL SCH ×2 (09:00→20:13)
[2022-11-04] MEDS: BUDESONIDE 0.5 MG/2 ML NEB SOLUTION NEB SCH ×2 (09:10→21:23)
[2022-11-04 15:25] VITALS: BP 111/71
[2022-11-04 19:48] VITALS: BP 107/89
[2022-11-04 21:07] LABS: GLUCOMETER DEV NAME(LOC) 6N.1; GLUCOSE,POINT OF CARE 136 MG/DL (70-110)
[2022-11-05 05:03] VITALS: BP 124/78
[2022-11-05] MEDS: LEVOTHYROXINE SODIUM 125 MCG TABLET PO SCH (05:50)
[2022-11-05 08:22] VITALS: BP 95/63
[2022-11-05 08:57] LABS: BASOPHILS % (AUTO) 0.2 % (0.0-2.0); EOSINOPHILS % (AUTO) 3.2 % (1.0-6.0); HEMOGLOBIN 11.6 g/dL (13.5-17.5); LYMPHOCYTES # (AUTO) 1.1 K/uL (1.0-4.8); LYMPHOCYTES % (AUTO) 8.9 % (22.0-44.0); MEAN CORPUSCULAR HGB CONC 32.2 G/dL (31.0-37.0); MEAN CORPUSCULAR VOLUME 84 fL (80-100); MONOCYTES # (AUTO) 0.7 K/uL (0.1-1.0); MONOCYTES % (AUTO) 5.8 % (2.0-9.0); NEUTROPHILS # (AUTO) 9.6 K/uL (1.8-7.7); NEUTROPHILS % (AUTO) 81.9 % (40.0-70.0); PLATELET COUNT (AUTO) 586 K/uL (150-450); RED CELL DISTRIBUTION WIDTH 14.8 % (11.5-14.5)
[2022-11-05 09:02] LABS: ANION GAP 4 mmol/L (8-16); CALCIUM, TOTAL 9.1 mg/dL (8.8-10.5); CARBON DIOXIDE 33 mmol/L (22-29); CHLORIDE 100 mmol/L (98-107); CREATININE 0.68 mg/dL (0.60-1.30); GLOMERULAR FILTR. RATE CALC > 60 mL/min (>60); GLUCOSE,RANDOM 97 mg/dL (70-110); POTASSIUM 4.1 mmol/L (3.5-5.1); SODIUM SERUM 137 mmol/L (136-145); UREA NITROGEN, BLOOD 17 mg/dL (7-18)
[2022-11-05] MEDS: MULTIVITAMINS WITH MINERALS, THERAPEUTIC TABLET PO SCH (09:53)
[2022-11-05] MEDS: RisperiDONE CONC 1 MG/ML SOLUTION ORAL.SYG PO SCH ×2 (09:53→19:55)
[2022-11-05] MEDS: LevETIRAcetam 100 MG/ML 5 ML SOLUTION UDCUP PO SCH ×2 (09:53→19:55)
[2022-11-05] MEDS: PANTOPRAZOLE SODIUM 40 MG DR TABLET PO SCH (09:53)
[2022-11-05] MEDS: FOLIC ACID 1 MG TABLET PO SCH (09:54)
[2022-11-05] MEDS: HEPARIN SODIUM,PORCINE 5,000 UNITS/ML VIAL SQ SCH ×2 (09:54→16:49)
[2022-11-05] MEDS: THIAMINE 100 MG TABLET PO SCH (09:54)
[2022-11-05] MEDS: DOCUSATE SODIUM 100 MG CAPSULE PO SCH ×2 (09:54→19:56)
[2022-11-05] MEDS: ETHYL ALCOHOL 62% ANTISEPTIC NASAL SANITIZER 0.6 ML AMPUL NASAL SCH ×2 (09:55→19:55)
[2022-11-05] MEDS: HYDROCODONE/ACETAMINOPHEN 5-325 MG TABLET PO PRN (09:57)
[2022-11-05] MEDS: BUDESONIDE 0.5 MG/2 ML NEB SOLUTION NEB SCH ×2 (10:43→21:42)
[2022-11-05 15:34] VITALS: BP 104/54
[2022-11-05 19:50] VITALS: BP 119/60
[2022-11-05] MEDS: ALBUTEROL SULFATE 2.5 MG/0.5 ML NEB SOLUTION NEB PRN (21:42)
[2022-11-06] MEDS: HEPARIN SODIUM,PORCINE 5,000 UNITS/ML VIAL SQ SCH ×5 (00:10→23:10)
[2022-11-06] MEDS: HYDROCODONE/ACETAMINOPHEN 5-325 MG TABLET PO PRN ×2 (03:19→20:23)
[2022-11-06] MEDS: LEVOTHYROXINE SODIUM 125 MCG TABLET PO SCH (04:06)
[2022-11-06 04:25] VITALS: BP 111/69
[2022-11-06] MEDS: FOLIC ACID 1 MG TABLET PO SCH (08:14)
[2022-11-06] MEDS: THIAMINE 100 MG TABLET PO SCH (08:14)
[2022-11-06] MEDS: SCOPOLAMINE HYDROBROMIDE 1 MG/72 HOUR PATCH TP SCH (08:14)
[2022-11-06] MEDS: PANTOPRAZOLE SODIUM 40 MG DR TABLET PO SCH (08:14)
[2022-11-06] MEDS: LevETIRAcetam 100 MG/ML 5 ML SOLUTION UDCUP PO SCH ×2 (08:14→19:41)
[2022-11-06] MEDS: ETHYL ALCOHOL 62% ANTISEPTIC NASAL SANITIZER 0.6 ML AMPUL NASAL SCH ×2 (08:14→19:40)
[2022-11-06] MEDS: MULTIVITAMINS WITH MINERALS, THERAPEUTIC TABLET PO SCH (08:14)
[2022-11-06] MEDS: RisperiDONE CONC 1 MG/ML SOLUTION ORAL.SYG PO SCH ×2 (08:14→19:41)
[2022-11-06] MEDS: DOCUSATE SODIUM 100 MG CAPSULE PO SCH ×2 (08:14→19:40)
[2022-11-06 08:59] VITALS: BP 119/79
[2022-11-06] MEDS: BUDESONIDE 0.5 MG/2 ML NEB SOLUTION NEB SCH ×2 (09:03→21:00)
[2022-11-06 17:07] VITALS: BP 97/58
[2022-11-06 19:36] VITALS: BP 90/59
[2022-11-07] MEDS: HYDROCODONE/ACETAMINOPHEN 5-325 MG TABLET PO PRN ×2 (03:01→20:21)
[2022-11-07] MEDS: LEVOTHYROXINE SODIUM 125 MCG TABLET PO SCH (03:36)
[2022-11-07 05:24] VITALS: BP 110/63
[2022-11-07] MEDS: THIAMINE 100 MG TABLET PO SCH (08:07)
[2022-11-07] MEDS: FOLIC ACID 1 MG TABLET PO SCH (08:07)
[2022-11-07] MEDS: LevETIRAcetam 100 MG/ML 5 ML SOLUTION UDCUP PO SCH ×2 (08:07→20:20)
[2022-11-07] MEDS: ETHYL ALCOHOL 62% ANTISEPTIC NASAL SANITIZER 0.6 ML AMPUL NASAL SCH ×2 (08:07→20:21)
[2022-11-07] MEDS: DOCUSATE SODIUM 100 MG CAPSULE PO SCH ×2 (08:07→20:20)
[2022-11-07] MEDS: RisperiDONE CONC 1 MG/ML SOLUTION ORAL.SYG PO SCH ×2 (08:07→20:20)
[2022-11-07] MEDS: PANTOPRAZOLE SODIUM 40 MG DR TABLET PO SCH ×2 (08:07→09:00)
[2022-11-07] MEDS: MULTIVITAMINS WITH MINERALS, THERAPEUTIC TABLET PO SCH (08:07)
[2022-11-07 08:08] VITALS: BP 106/71
[2022-11-07] MEDS: HEPARIN SODIUM,PORCINE 5,000 UNITS/ML VIAL SQ SCH ×3 (08:08→23:38)
[2022-11-07] MEDS: BUDESONIDE 0.5 MG/2 ML NEB SOLUTION NEB SCH ×2 (09:24→21:00)
[2022-11-07 16:05] VITALS: BP 118/74
[2022-11-07 19:45] VITALS: BP 115/68
[2022-11-08] MEDS: HYDROCODONE/ACETAMINOPHEN 5-325 MG TABLET PO PRN ×3 (01:49→19:41)
[2022-11-08 04:15] VITALS: BP 104/63
[2022-11-08] MEDS: LEVOTHYROXINE SODIUM 125 MCG TABLET PO SCH (06:20)
[2022-11-08] MEDS: LevETIRAcetam 100 MG/ML 5 ML SOLUTION UDCUP PO SCH ×2 (08:00→20:26)
[2022-11-08] MEDS: THIAMINE 100 MG TABLET PO SCH (08:00)
[2022-11-08] MEDS: RisperiDONE CONC 1 MG/ML SOLUTION ORAL.SYG PO SCH ×2 (08:00→20:26)
[2022-11-08] MEDS: PANTOPRAZOLE SODIUM 40 MG DR TABLET PO SCH (08:01)
[2022-11-08] MEDS: DOCUSATE SODIUM 100 MG CAPSULE PO SCH ×2 (08:01→20:26)
[2022-11-08] MEDS: MULTIVITAMINS WITH MINERALS, THERAPEUTIC TABLET PO SCH (08:01)
[2022-11-08] MEDS: FOLIC ACID 1 MG TABLET PO SCH (08:01)
[2022-11-08] MEDS: HEPARIN SODIUM,PORCINE 5,000 UNITS/ML VIAL SQ SCH ×2 (08:05→16:19)
[2022-11-08 08:18] VITALS: BP 102/59
[2022-11-08] MEDS: BUDESONIDE 0.5 MG/2 ML NEB SOLUTION NEB SCH ×2 (08:26→20:16)
[2022-11-08] MEDS: ETHYL ALCOHOL 62% ANTISEPTIC NASAL SANITIZER 0.6 ML AMPUL NASAL SCH ×2 (09:01→20:26)
[2022-11-08 16:49] VITALS: BP 124/66
[2022-11-08 20:46] VITALS: BP 59/20
[2022-11-09] MEDS: HEPARIN SODIUM,PORCINE 5,000 UNITS/ML VIAL SQ SCH ×3 (00:19→16:46)
[2022-11-09] MEDS: HYDROCODONE/ACETAMINOPHEN 5-325 MG TABLET PO PRN ×3 (02:23→20:05)
[2022-11-09 04:08] VITALS: BP 136/79
[2022-11-09] MEDS: LEVOTHYROXINE SODIUM 125 MCG TABLET PO SCH (06:19)
[2022-11-09] MEDS: BUDESONIDE 0.5 MG/2 ML NEB SOLUTION NEB SCH ×2 (08:02→19:37)
[2022-11-09 08:23] VITALS: BP 130/78
[2022-11-09] MEDS: ETHYL ALCOHOL 62% ANTISEPTIC NASAL SANITIZER 0.6 ML AMPUL NASAL SCH ×2 (09:12→20:05)
[2022-11-09] MEDS: THIAMINE 100 MG TABLET PO SCH (09:12)
[2022-11-09] MEDS: FOLIC ACID 1 MG TABLET PO SCH (09:12)
[2022-11-09] MEDS: PANTOPRAZOLE SODIUM 40 MG DR TABLET PO SCH (09:12)
[2022-11-09] MEDS: DOCUSATE SODIUM 100 MG CAPSULE PO SCH ×2 (09:12→20:05)
[2022-11-09] MEDS: LevETIRAcetam 100 MG/ML 5 ML SOLUTION UDCUP PO SCH ×2 (09:12→20:05)
[2022-11-09] MEDS: SCOPOLAMINE HYDROBROMIDE 1 MG/72 HOUR PATCH TP SCH (09:12)
[2022-11-09] MEDS: MULTIVITAMINS WITH MINERALS, THERAPEUTIC TABLET PO SCH (09:12)
[2022-11-09] MEDS: RisperiDONE CONC 1 MG/ML SOLUTION ORAL.SYG PO SCH ×2 (09:12→20:04)
[2022-11-09 15:57] VITALS: BP 97/59
[2022-11-10] MEDS: HEPARIN SODIUM,PORCINE 5,000 UNITS/ML VIAL SQ SCH ×4 (00:06→23:32)
[2022-11-10] MEDS: HYDROCODONE/ACETAMINOPHEN 5-325 MG TABLET PO PRN ×2 (00:06→10:10)
[2022-11-10 04:17] VITALS: BP 128/66
[2022-11-10] MEDS: LEVOTHYROXINE SODIUM 125 MCG TABLET PO SCH (06:39)
[2022-11-10] MEDS: FOLIC ACID 1 MG TABLET PO SCH (08:20)
[2022-11-10] MEDS: THIAMINE 100 MG TABLET PO SCH (08:20)
[2022-11-10] MEDS: LevETIRAcetam 100 MG/ML 5 ML SOLUTION UDCUP PO SCH ×2 (08:20→20:35)
[2022-11-10] MEDS: MULTIVITAMINS WITH MINERALS, THERAPEUTIC TABLET PO SCH (08:20)
[2022-11-10] MEDS: RisperiDONE CONC 1 MG/ML SOLUTION ORAL.SYG PO SCH ×2 (08:20→20:35)
[2022-11-10] MEDS: ETHYL ALCOHOL 62% ANTISEPTIC NASAL SANITIZER 0.6 ML AMPUL NASAL SCH ×2 (08:20→20:34)
[2022-11-10] MEDS: PANTOPRAZOLE SODIUM 40 MG DR TABLET PO SCH (08:20)
[2022-11-10] MEDS: DOCUSATE SODIUM 100 MG CAPSULE PO SCH ×2 (08:21→20:35)
[2022-11-10] MEDS: BUDESONIDE 0.5 MG/2 ML NEB SOLUTION NEB SCH ×2 (08:28→21:02)
[2022-11-10 08:54] VITALS: BP 107/67
[2022-11-10 11:48] LABS: BASOPHILS % (AUTO) 1.2 % (0.0-2.0); EOSINOPHILS % (AUTO) 1.1 % (1.0-6.0); HEMATOCRIT 37.4 % (41-53); HEMOGLOBIN 11.8 g/dL (13.5-17.5); LYMPHOCYTES # (AUTO) 1.2 K/uL (1.0-4.8); LYMPHOCYTES % (AUTO) 11.5 % (22.0-44.0); MEAN CORPUSCULAR HGB CONC 31.7 G/dL (31.0-37.0); MEAN CORPUSCULAR VOLUME 85 fL (80-100); MONOCYTES # (AUTO) 1.1 K/uL (0.1-1.0); MONOCYTES % (AUTO) 10.5 % (2.0-9.0); NEUTROPHILS # (AUTO) 7.6 K/uL (1.8-7.7); NEUTROPHILS % (AUTO) 75.7 % (40.0-70.0); PLATELET COUNT (AUTO) 582 K/uL (150-450); RED BLOOD CELL COUNT(AUTO) 4.39 MIL/uL (4.50-5.90)
[2022-11-10 20:50] VITALS: BP 117/70
[2022-11-11 05:03] VITALS: BP 121/74
[2022-11-11] MEDS: LEVOTHYROXINE SODIUM 125 MCG TABLET PO SCH (05:52)
[2022-11-11 08:00] VITALS: BP 125/65
[2022-11-11] MEDS: BUDESONIDE 0.5 MG/2 ML NEB SOLUTION NEB SCH ×2 (08:18→21:00)
[2022-11-11] MEDS: LevETIRAcetam 100 MG/ML 5 ML SOLUTION UDCUP PO SCH ×2 (08:53→20:02)
[2022-11-11] MEDS: MULTIVITAMINS WITH MINERALS, THERAPEUTIC TABLET PO SCH (08:53)
[2022-11-11] MEDS: RisperiDONE CONC 1 MG/ML SOLUTION ORAL.SYG PO SCH ×2 (08:53→20:02)
[2022-11-11] MEDS: THIAMINE 100 MG TABLET PO SCH (08:54)
[2022-11-11] MEDS: DOCUSATE SODIUM 100 MG CAPSULE PO SCH ×2 (08:54→20:02)
[2022-11-11] MEDS: PANTOPRAZOLE SODIUM 40 MG DR TABLET PO SCH (08:54)
[2022-11-11] MEDS: FOLIC ACID 1 MG TABLET PO SCH (08:54)
[2022-11-11] MEDS: HEPARIN SODIUM,PORCINE 5,000 UNITS/ML VIAL SQ SCH ×3 (08:55→23:55)
[2022-11-11] MEDS: ETHYL ALCOHOL 62% ANTISEPTIC NASAL SANITIZER 0.6 ML AMPUL NASAL SCH ×2 (08:59→20:02)
[2022-11-11 15:49] VITALS: BP 111/65
[2022-11-11 20:43] VITALS: BP 126/69
[2022-11-12 03:49] VITALS: BP 117/62
[2022-11-12] MEDS: LEVOTHYROXINE SODIUM 125 MCG TABLET PO SCH (06:28)
[2022-11-12] MEDS: ETHYL ALCOHOL 62% ANTISEPTIC NASAL SANITIZER 0.6 ML AMPUL NASAL SCH ×2 (08:10→20:09)
[2022-11-12] MEDS: THIAMINE 100 MG TABLET PO SCH (08:10)
[2022-11-12] MEDS: FOLIC ACID 1 MG TABLET PO SCH (08:10)
[2022-11-12] MEDS: PANTOPRAZOLE SODIUM 40 MG DR TABLET PO SCH (08:10)
[2022-11-12] MEDS: RisperiDONE CONC 1 MG/ML SOLUTION ORAL.SYG PO SCH ×2 (08:10→20:10)
[2022-11-12] MEDS: HEPARIN SODIUM,PORCINE 5,000 UNITS/ML VIAL SQ SCH ×2 (08:10→16:00)
[2022-11-12] MEDS: DOCUSATE SODIUM 100 MG CAPSULE PO SCH ×2 (08:10→20:09)
[2022-11-12] MEDS: SCOPOLAMINE HYDROBROMIDE 1 MG/72 HOUR PATCH TP SCH (08:10)
[2022-11-12] MEDS: MULTIVITAMINS WITH MINERALS, THERAPEUTIC TABLET PO SCH (08:10)
[2022-11-12] MEDS: LevETIRAcetam 100 MG/ML 5 ML SOLUTION UDCUP PO SCH ×2 (08:10→20:09)
[2022-11-12 09:21] VITALS: BP 112/68
[2022-11-12] MEDS: BUDESONIDE 0.5 MG/2 ML NEB SOLUTION NEB SCH ×2 (11:07→21:00)
[2022-11-12 20:19] VITALS: BP 120/69
[2022-11-12 20:41] LABS: ALANINE AMINOTRANSFERASE 27 U/L (12-78); ALBUMIN 2.7 g/dL (3.4-5.0); ALKALINE PHOSPHATASE 129 U/L (46-116); ANION GAP 8 mmol/L (8-16); ASPARTATE AMINOTRANSFERASE 23 U/L (15-37); BILIRUBIN,TOTAL 0.2 mg/dL (0.1-1.0); CALCIUM, TOTAL 9.1 mg/dL (8.8-10.5); CARBON DIOXIDE 30 mmol/L (22-29); CHLORIDE 103 mmol/L (98-107); CREATININE 0.65 mg/dL (0.60-1.30); GLOMERULAR FILTR. RATE CALC > 60 mL/min (>60); GLUCOSE,RANDOM 115 mg/dL (70-110); POTASSIUM 3.7 mmol/L (3.5-5.1); SODIUM SERUM 141 mmol/L (136-145); TOTAL PROTEIN, SERUM 6.9 g/dL (6.4-8.2); UREA NITROGEN, BLOOD 30 mg/dL (7-18)
[2022-11-13] MEDS: HEPARIN SODIUM,PORCINE 5,000 UNITS/ML VIAL SQ SCH ×4 (00:08→23:40)
[2022-11-13 03:58] VITALS: BP 110/68
[2022-11-13] MEDS: LEVOTHYROXINE SODIUM 125 MCG TABLET PO SCH (06:16)
[2022-11-13] MEDS: BUDESONIDE 0.5 MG/2 ML NEB SOLUTION NEB SCH ×2 (07:55→20:39)
[2022-11-13] MEDS: DOCUSATE SODIUM 100 MG CAPSULE PO SCH ×2 (08:09→20:15)
[2022-11-13] MEDS: THIAMINE 100 MG TABLET PO SCH (08:09)
[2022-11-13] MEDS: ETHYL ALCOHOL 62% ANTISEPTIC NASAL SANITIZER 0.6 ML AMPUL NASAL SCH ×2 (08:09→20:15)
[2022-11-13] MEDS: FOLIC ACID 1 MG TABLET PO SCH (08:10)
[2022-11-13] MEDS: LevETIRAcetam 100 MG/ML 5 ML SOLUTION UDCUP PO SCH ×2 (08:10→20:15)
[2022-11-13] MEDS: RisperiDONE CONC 1 MG/ML SOLUTION ORAL.SYG PO SCH ×2 (08:10→20:15)
[2022-11-13 08:27] VITALS: BP 112/70
[2022-11-13] MEDS: PANTOPRAZOLE SODIUM 40 MG DR TABLET PO SCH (09:00)
[2022-11-13] MEDS: MULTIVITAMINS WITH MINERALS, THERAPEUTIC TABLET PO SCH (09:05)
[2022-11-13 15:31] VITALS: BP 119/76
[2022-11-13 20:00] VITALS: BP 117/74
[2022-11-13] MEDS: HYDROCODONE/ACETAMINOPHEN 5-325 MG TABLET PO PRN (20:22)
[2022-11-13] MEDS: ALBUTEROL SULFATE 2.5 MG/0.5 ML NEB SOLUTION NEB PRN (20:39)
[2022-11-14 05:40] VITALS: BP 129/71
[2022-11-14] MEDS: OMEPRAZOLE 20 MG CAPSULE PO SCH (07:15)
[2022-11-14] MEDS: LEVOTHYROXINE SODIUM 125 MCG TABLET PO SCH (07:15)
[2022-11-14 07:37] VITALS: BP 125/77
[2022-11-14] MEDS: FOLIC ACID 1 MG TABLET PO SCH (08:04)
[2022-11-14] MEDS: RisperiDONE CONC 1 MG/ML SOLUTION ORAL.SYG PO SCH ×2 (08:04→20:26)
[2022-11-14] MEDS: DOCUSATE SODIUM 100 MG CAPSULE PO SCH ×2 (08:04→20:26)
[2022-11-14] MEDS: MULTIVITAMINS WITH MINERALS, THERAPEUTIC TABLET PO SCH (08:04)
[2022-11-14] MEDS: LevETIRAcetam 100 MG/ML 5 ML SOLUTION UDCUP PO SCH ×2 (08:04→20:26)
[2022-11-14] MEDS: HEPARIN SODIUM,PORCINE 5,000 UNITS/ML VIAL SQ SCH ×2 (08:05→17:02)
[2022-11-14] MEDS: ETHYL ALCOHOL 62% ANTISEPTIC NASAL SANITIZER 0.6 ML AMPUL NASAL SCH ×2 (08:07→20:26)
[2022-11-14] MEDS: BUDESONIDE 0.5 MG/2 ML NEB SOLUTION NEB SCH ×2 (08:54→19:45)
[2022-11-14] MEDS: THIAMINE 100 MG TABLET PO SCH (12:36)
[2022-11-14 15:25] VITALS: BP 123/75
[2022-11-14 20:27] VITALS: BP 131/68
[2022-11-15] MEDS: HEPARIN SODIUM,PORCINE 5,000 UNITS/ML VIAL SQ SCH ×3 (00:35→16:46)
[2022-11-15 04:45] VITALS: BP 136/82
[2022-11-15] MEDS: OMEPRAZOLE 20 MG CAPSULE PO SCH (06:57)
[2022-11-15] MEDS: LEVOTHYROXINE SODIUM 125 MCG TABLET PO SCH (06:57)
[2022-11-15] MEDS: BUDESONIDE 0.5 MG/2 ML NEB SOLUTION NEB SCH ×2 (08:04→19:27)
[2022-11-15 08:17] VITALS: BP 129/68
[2022-11-15] MEDS: RisperiDONE CONC 1 MG/ML SOLUTION ORAL.SYG PO SCH ×2 (08:28→20:54)
[2022-11-15] MEDS: MULTIVITAMINS WITH MINERALS, THERAPEUTIC TABLET PO SCH (08:29)
[2022-11-15] MEDS: SCOPOLAMINE HYDROBROMIDE 1 MG/72 HOUR PATCH TP SCH (08:29)
[2022-11-15] MEDS: LevETIRAcetam 100 MG/ML 5 ML SOLUTION UDCUP PO SCH ×2 (08:29→20:54)
[2022-11-15] MEDS: FOLIC ACID 1 MG TABLET PO SCH (08:29)
[2022-11-15] MEDS: DOCUSATE SODIUM 100 MG CAPSULE PO SCH ×2 (08:29→20:53)
[2022-11-15] MEDS: THIAMINE 100 MG TABLET PO SCH (08:29)
[2022-11-15] MEDS: ETHYL ALCOHOL 62% ANTISEPTIC NASAL SANITIZER 0.6 ML AMPUL NASAL SCH ×2 (10:05→20:54)
[2022-11-15 20:16] VITALS: BP 127/60
[2022-11-16] MEDS: HEPARIN SODIUM,PORCINE 5,000 UNITS/ML VIAL SQ SCH ×3 (00:38→16:19)
[2022-11-16 04:00] VITALS: BP 125/63
[2022-11-16] MEDS: OMEPRAZOLE 20 MG CAPSULE PO SCH (06:38)
[2022-11-16] MEDS: LEVOTHYROXINE SODIUM 125 MCG TABLET PO SCH (06:38)
[2022-11-16] MEDS: BUDESONIDE 0.5 MG/2 ML NEB SOLUTION NEB SCH ×2 (07:52→20:35)
[2022-11-16] MEDS: RisperiDONE CONC 1 MG/ML SOLUTION ORAL.SYG PO SCH ×2 (08:36→20:08)
[2022-11-16] MEDS: ETHYL ALCOHOL 62% ANTISEPTIC NASAL SANITIZER 0.6 ML AMPUL NASAL SCH ×2 (08:37→20:08)
[2022-11-16] MEDS: LevETIRAcetam 100 MG/ML 5 ML SOLUTION UDCUP PO SCH ×2 (08:37→20:08)
[2022-11-16] MEDS: DOCUSATE SODIUM 100 MG CAPSULE PO SCH ×2 (08:37→20:08)
[2022-11-16] MEDS: FOLIC ACID 1 MG TABLET PO SCH (08:37)
[2022-11-16] MEDS: MULTIVITAMINS WITH MINERALS, THERAPEUTIC TABLET PO SCH (08:37)
[2022-11-16] MEDS: THIAMINE 100 MG TABLET PO SCH (08:37)
[2022-11-16 09:43] VITALS: BP 114/76
[2022-11-16 15:30] VITALS: BP 137/68
[2022-11-16 19:35] VITALS: BP 120/54
[2022-11-16] MEDS: ALBUTEROL SULFATE 2.5 MG/0.5 ML NEB SOLUTION NEB PRN (20:35)
[2022-11-17] MEDS: HEPARIN SODIUM,PORCINE 5,000 UNITS/ML VIAL SQ SCH ×3 (01:29→16:57)
[2022-11-17 04:10] VITALS: BP 128/68
[2022-11-17] MEDS: LEVOTHYROXINE SODIUM 125 MCG TABLET PO SCH (05:54)
[2022-11-17] MEDS: OMEPRAZOLE 20 MG CAPSULE PO SCH (05:55)
[2022-11-17 07:42] LABS: BASOPHILS % (AUTO) 0.2 % (0.0-2.0); EOSINOPHILS % (AUTO) 3.7 % (1.0-6.0); HEMATOCRIT 34.3 % (41-53); HEMOGLOBIN 11.2 g/dL (13.5-17.5); LYMPHOCYTES # (AUTO) 1.4 K/uL (1.0-4.8); LYMPHOCYTES % (AUTO) 13.8 % (22.0-44.0); MEAN CORPUSCULAR HEMOGLOBIN 27.5 pg (26.0-34.0); MEAN CORPUSCULAR HGB CONC 32.6 G/dL (31.0-37.0); MEAN CORPUSCULAR VOLUME 84 fL (80-100); MONOCYTES % (AUTO) 10.5 % (2.0-9.0); NEUTROPHILS # (AUTO) 7.1 K/uL (1.8-7.7); NEUTROPHILS % (AUTO) 71.8 % (40.0-70.0); PLATELET COUNT (AUTO) 358 K/uL (150-450); RED BLOOD CELL COUNT(AUTO) 4.06 MIL/uL (4.50-5.90); RED CELL DISTRIBUTION WIDTH 15.1 % (11.5-14.5)
[2022-11-17 07:54] LABS: ANION GAP 3 mmol/L (8-16); CALCIUM, TOTAL 9.1 mg/dL (8.8-10.5); CARBON DIOXIDE 35 mmol/L (22-29); CHLORIDE 102 mmol/L (98-107); CREATININE 0.75 mg/dL (0.60-1.30); GLOMERULAR FILTR. RATE CALC > 60 mL/min (>60); GLUCOSE,RANDOM 116 mg/dL (70-110); POTASSIUM 3.6 mmol/L (3.5-5.1); SODIUM SERUM 140 mmol/L (136-145); UREA NITROGEN, BLOOD 21 mg/dL (7-18)
[2022-11-17] MEDS: BUDESONIDE 0.5 MG/2 ML NEB SOLUTION NEB SCH ×2 (07:54→20:15)
[2022-11-17] MEDS: RisperiDONE CONC 1 MG/ML SOLUTION ORAL.SYG PO SCH ×2 (08:15→20:06)
[2022-11-17] MEDS: LevETIRAcetam 100 MG/ML 5 ML SOLUTION UDCUP PO SCH ×2 (08:15→20:06)
[2022-11-17] MEDS: HYDROCODONE/ACETAMINOPHEN 5-325 MG TABLET PO PRN ×3 (08:16→18:38)
[2022-11-17] MEDS: FOLIC ACID 1 MG TABLET PO SCH (08:16)
[2022-11-17] MEDS: THIAMINE 100 MG TABLET PO SCH (08:16)
[2022-11-17] MEDS: MULTIVITAMINS WITH MINERALS, THERAPEUTIC TABLET PO SCH (08:16)
[2022-11-17] MEDS: ETHYL ALCOHOL 62% ANTISEPTIC NASAL SANITIZER 0.6 ML AMPUL NASAL SCH ×2 (08:16→20:08)
[2022-11-17] MEDS: DOCUSATE SODIUM 100 MG CAPSULE PO SCH ×2 (08:16→20:20)
[2022-11-17 08:20] VITALS: BP 120/76
[2022-11-17 16:46] VITALS: BP 119/70
[2022-11-17] MEDS ORDERED: MELATONIN 3 MG TABLET PO PRN (19:45)
[2022-11-17] MEDS ORDERED: MORPHINE SULFATE 2 MG/ML SYRINGE IM ONE (19:45)
[2022-11-17 20:11] VITALS: BP 126/77
[2022-11-17] MEDS: ALBUTEROL SULFATE 2.5 MG/0.5 ML NEB SOLUTION NEB PRN (20:15)
[2022-11-18] MEDS: HEPARIN SODIUM,PORCINE 5,000 UNITS/ML VIAL SQ SCH ×4 (00:02→23:51)
[2022-11-18 04:37] VITALS: BP 122/73
[2022-11-18] MEDS: LEVOTHYROXINE SODIUM 125 MCG TABLET PO SCH (07:32)
[2022-11-18] MEDS: OMEPRAZOLE 20 MG CAPSULE PO SCH (07:32)
[2022-11-18] MEDS: FOLIC ACID 1 MG TABLET PO SCH (08:25)
[2022-11-18] MEDS: ETHYL ALCOHOL 62% ANTISEPTIC NASAL SANITIZER 0.6 ML AMPUL NASAL SCH ×2 (08:25→20:31)
[2022-11-18] MEDS: DOCUSATE SODIUM 100 MG CAPSULE PO SCH ×2 (08:25→20:31)
[2022-11-18] MEDS: MULTIVITAMINS WITH MINERALS, THERAPEUTIC TABLET PO SCH (08:25)
[2022-11-18] MEDS: THIAMINE 100 MG TABLET PO SCH (08:25)
[2022-11-18] MEDS: RisperiDONE CONC 1 MG/ML SOLUTION ORAL.SYG PO SCH ×2 (08:25→20:31)
[2022-11-18] MEDS: LevETIRAcetam 100 MG/ML 5 ML SOLUTION UDCUP PO SCH ×2 (08:25→20:31)
[2022-11-18] MEDS: SCOPOLAMINE HYDROBROMIDE 1 MG/72 HOUR PATCH TP SCH (08:25)
[2022-11-18] MEDS: BUDESONIDE 0.5 MG/2 ML NEB SOLUTION NEB SCH ×2 (08:51→20:41)
[2022-11-18 09:07] VITALS: BP 119/66
[2022-11-18 17:12] VITALS: BP 107/69
[2022-11-18 20:21] VITALS: BP 101/64
[2022-11-19 04:16] VITALS: BP 128/67
[2022-11-19] MEDS: LEVOTHYROXINE SODIUM 125 MCG TABLET PO SCH (06:19)
[2022-11-19] MEDS: OMEPRAZOLE 20 MG CAPSULE PO SCH (06:19)
[2022-11-19 07:18] VITALS: BP 124/68
[2022-11-19] MEDS: HEPARIN SODIUM,PORCINE 5,000 UNITS/ML VIAL SQ SCH ×2 (08:17→17:19)
[2022-11-19] MEDS: BUDESONIDE 0.5 MG/2 ML NEB SOLUTION NEB SCH ×2 (08:49→20:46)
[2022-11-19] MEDS: ETHYL ALCOHOL 62% ANTISEPTIC NASAL SANITIZER 0.6 ML AMPUL NASAL SCH ×2 (09:42→22:01)
[2022-11-19] MEDS: LevETIRAcetam 100 MG/ML 5 ML SOLUTION UDCUP PO SCH ×2 (09:43→20:18)
[2022-11-19] MEDS: FOLIC ACID 1 MG TABLET PO SCH (09:43)
[2022-11-19] MEDS: MULTIVITAMINS WITH MINERALS, THERAPEUTIC TABLET PO SCH (09:43)
[2022-11-19] MEDS: THIAMINE 100 MG TABLET PO SCH (09:43)
[2022-11-19] MEDS: DOCUSATE SODIUM 100 MG CAPSULE PO SCH ×2 (09:44→21:00)
[2022-11-19] MEDS: RisperiDONE CONC 1 MG/ML SOLUTION ORAL.SYG PO SCH ×2 (09:44→20:18)
[2022-11-19 15:08] VITALS: BP 134/86
[2022-11-19 19:40] VITALS: BP 135/85
[2022-11-19] MEDS: HYDROCODONE/ACETAMINOPHEN 5-325 MG TABLET PO PRN (20:18)
[2022-11-20] MEDS: HEPARIN SODIUM,PORCINE 5,000 UNITS/ML VIAL SQ SCH ×3 (00:09→15:42)
[2022-11-20] MEDS: LEVOTHYROXINE SODIUM 125 MCG TABLET PO SCH (05:44)
[2022-11-20] MEDS: OMEPRAZOLE 20 MG CAPSULE PO SCH (05:44)
[2022-11-20] MEDS: HYDROCODONE/ACETAMINOPHEN 5-325 MG TABLET PO PRN ×3 (05:46→15:42)
[2022-11-20 06:07] VITALS: BP 138/79
[2022-11-20] MEDS: THIAMINE 100 MG TABLET PO SCH (07:53)
[2022-11-20] MEDS: FOLIC ACID 1 MG TABLET PO SCH (07:53)
[2022-11-20] MEDS: DOCUSATE SODIUM 100 MG CAPSULE PO SCH ×2 (07:53→20:43)
[2022-11-20] MEDS: MULTIVITAMINS WITH MINERALS, THERAPEUTIC TABLET PO SCH (07:53)
[2022-11-20] MEDS: LevETIRAcetam 100 MG/ML 5 ML SOLUTION UDCUP PO SCH ×2 (07:54→20:43)
[2022-11-20] MEDS: RisperiDONE CONC 1 MG/ML SOLUTION ORAL.SYG PO SCH ×2 (07:54→20:43)
[2022-11-20] MEDS: ETHYL ALCOHOL 62% ANTISEPTIC NASAL SANITIZER 0.6 ML AMPUL NASAL SCH ×2 (07:56→20:43)
[2022-11-20 08:00] VITALS: BP 111/68
[2022-11-20] MEDS: BUDESONIDE 0.5 MG/2 ML NEB SOLUTION NEB SCH ×2 (08:33→22:48)
[2022-11-20 15:41] VITALS: BP 142/81
[2022-11-20 22:42] VITALS: BP 116/57
[2022-11-20] MEDS: ALBUTEROL SULFATE 2.5 MG/0.5 ML NEB SOLUTION NEB PRN (22:48)
[2022-11-21] MEDS: HEPARIN SODIUM,PORCINE 5,000 UNITS/ML VIAL SQ SCH ×4 (00:51→23:29)
[2022-11-21] MEDS: LEVOTHYROXINE SODIUM 125 MCG TABLET PO SCH (06:05)
[2022-11-21 06:37] VITALS: BP 116/70
[2022-11-21] MEDS: BUDESONIDE 0.5 MG/2 ML NEB SOLUTION NEB SCH ×2 (07:59→21:00)
[2022-11-21] MEDS: RisperiDONE CONC 1 MG/ML SOLUTION ORAL.SYG PO SCH ×2 (09:30→20:06)
[2022-11-21] MEDS: SCOPOLAMINE HYDROBROMIDE 1 MG/72 HOUR PATCH TP SCH (09:30)
[2022-11-21] MEDS: LevETIRAcetam 100 MG/ML 5 ML SOLUTION UDCUP PO SCH ×2 (09:30→20:06)
[2022-11-21] MEDS: DOCUSATE SODIUM 100 MG CAPSULE PO SCH ×2 (09:31→20:07)
[2022-11-21] MEDS: OMEPRAZOLE 20 MG CAPSULE PO SCH (09:31)
[2022-11-21] MEDS: FOLIC ACID 1 MG TABLET PO SCH (09:31)
[2022-11-21] MEDS: THIAMINE 100 MG TABLET PO SCH (09:31)
[2022-11-21] MEDS: MULTIVITAMINS WITH MINERALS, THERAPEUTIC TABLET PO SCH (09:31)
[2022-11-21] MEDS: ETHYL ALCOHOL 62% ANTISEPTIC NASAL SANITIZER 0.6 ML AMPUL NASAL SCH ×2 (09:32→20:07)
[2022-11-21 16:00] VITALS: BP 110/70
[2022-11-21 19:59] VITALS: BP 131/69
[2022-11-21] MEDS: HYDROCODONE/ACETAMINOPHEN 5-325 MG TABLET PO PRN (23:28)
[2022-11-22 03:55] VITALS: BP 148/88
[2022-11-22] MEDS: HYDROCODONE/ACETAMINOPHEN 5-325 MG TABLET PO PRN ×2 (04:01→20:02)
[2022-11-22] MEDS: LEVOTHYROXINE SODIUM 125 MCG TABLET PO SCH (05:59)
[2022-11-22 08:01] VITALS: BP 110/66
[2022-11-22] MEDS: BUDESONIDE 0.5 MG/2 ML NEB SOLUTION NEB SCH ×2 (08:12→20:08)
[2022-11-22] MEDS: OMEPRAZOLE 20 MG CAPSULE PO SCH (09:35)
[2022-11-22] MEDS: DOCUSATE SODIUM 100 MG CAPSULE PO SCH ×2 (09:35→20:02)
[2022-11-22] MEDS: FOLIC ACID 1 MG TABLET PO SCH (09:35)
[2022-11-22] MEDS: LevETIRAcetam 100 MG/ML 5 ML SOLUTION UDCUP PO SCH ×2 (09:35→20:01)
[2022-11-22] MEDS: RisperiDONE CONC 1 MG/ML SOLUTION ORAL.SYG PO SCH ×2 (09:35→20:02)
[2022-11-22] MEDS: MULTIVITAMINS WITH MINERALS, THERAPEUTIC TABLET PO SCH (09:35)
[2022-11-22] MEDS: THIAMINE 100 MG TABLET PO SCH (09:35)
[2022-11-22] MEDS: ETHYL ALCOHOL 62% ANTISEPTIC NASAL SANITIZER 0.6 ML AMPUL NASAL SCH ×2 (09:36→20:02)
[2022-11-22] MEDS: HEPARIN SODIUM,PORCINE 5,000 UNITS/ML VIAL SQ SCH ×2 (09:37→16:28)
[2022-11-22 15:46] VITALS: BP 107/69
[2022-11-22 19:53] VITALS: BP 120/78
[2022-11-23] MEDS: HEPARIN SODIUM,PORCINE 5,000 UNITS/ML VIAL SQ SCH ×4 (00:11→23:29)
[2022-11-23 04:04] VITALS: BP 120/79
[2022-11-23] MEDS: LEVOTHYROXINE SODIUM 125 MCG TABLET PO SCH (06:32)
[2022-11-23] MEDS: OMEPRAZOLE 20 MG CAPSULE PO SCH (06:32)
[2022-11-23 07:43] VITALS: BP 122/82
[2022-11-23] MEDS: BUDESONIDE 0.5 MG/2 ML NEB SOLUTION NEB SCH ×2 (08:17→20:04)
[2022-11-23] MEDS: THIAMINE 100 MG TABLET PO SCH (08:32)
[2022-11-23] MEDS: MULTIVITAMINS WITH MINERALS, THERAPEUTIC TABLET PO SCH (08:32)
[2022-11-23] MEDS: FOLIC ACID 1 MG TABLET PO SCH (08:32)
[2022-11-23] MEDS: DOCUSATE SODIUM 100 MG CAPSULE PO SCH ×2 (08:32→20:41)
[2022-11-23] MEDS: LevETIRAcetam 100 MG/ML 5 ML SOLUTION UDCUP PO SCH ×2 (08:33→20:40)
[2022-11-23] MEDS: RisperiDONE CONC 1 MG/ML SOLUTION ORAL.SYG PO SCH ×2 (08:33→20:40)
[2022-11-23] MEDS: ETHYL ALCOHOL 62% ANTISEPTIC NASAL SANITIZER 0.6 ML AMPUL NASAL SCH ×2 (08:33→20:39)
[2022-11-23 15:23] VITALS: BP 118/64
[2022-11-23 20:15] VITALS: BP 92/63
[2022-11-24 04:20] VITALS: BP 100/66
[2022-11-24] MEDS: HYDROCODONE/ACETAMINOPHEN 5-325 MG TABLET PO PRN (05:42)
[2022-11-24] MEDS: LEVOTHYROXINE SODIUM 125 MCG TABLET PO SCH (05:42)
[2022-11-24] MEDS: OMEPRAZOLE 20 MG CAPSULE PO SCH (05:45)
[2022-11-24] MEDS: MULTIVITAMINS WITH MINERALS, THERAPEUTIC TABLET PO SCH (07:56)
[2022-11-24] MEDS: THIAMINE 100 MG TABLET PO SCH (07:56)
[2022-11-24] MEDS: RisperiDONE CONC 1 MG/ML SOLUTION ORAL.SYG PO SCH ×2 (07:56→20:07)
[2022-11-24] MEDS: HEPARIN SODIUM,PORCINE 5,000 UNITS/ML VIAL SQ SCH ×3 (07:56→23:22)
[2022-11-24] MEDS: DOCUSATE SODIUM 100 MG CAPSULE PO SCH ×2 (07:56→20:07)
[2022-11-24] MEDS: LevETIRAcetam 100 MG/ML 5 ML SOLUTION UDCUP PO SCH ×2 (07:56→20:07)
[2022-11-24] MEDS: FOLIC ACID 1 MG TABLET PO SCH (07:56)
[2022-11-24] MEDS: SCOPOLAMINE HYDROBROMIDE 1 MG/72 HOUR PATCH TP SCH (07:57)
[2022-11-24] MEDS: ETHYL ALCOHOL 62% ANTISEPTIC NASAL SANITIZER 0.6 ML AMPUL NASAL SCH ×2 (07:58→20:07)
[2022-11-24 08:40] VITALS: BP 126/73
[2022-11-24] MEDS: BUDESONIDE 0.5 MG/2 ML NEB SOLUTION NEB SCH ×2 (09:42→21:00)
[2022-11-24 13:00] LABS: BASOPHILS % (AUTO) 0.2 % (0.0-2.0); EOSINOPHILS % (AUTO) 2.9 % (1.0-6.0); HEMATOCRIT 35.2 % (41-53); HEMOGLOBIN 11.1 g/dL (13.5-17.5); LYMPHOCYTES # (AUTO) 1.3 K/uL (1.0-4.8); LYMPHOCYTES % (AUTO) 9.7 % (22.0-44.0); MEAN CORPUSCULAR HEMOGLOBIN 26.5 pg (26.0-34.0); MEAN CORPUSCULAR HGB CONC 31.7 G/dL (31.0-37.0); MEAN CORPUSCULAR VOLUME 84 fL (80-100); MONOCYTES # (AUTO) 1.1 K/uL (0.1-1.0); MONOCYTES % (AUTO) 8.2 % (2.0-9.0); PLATELET COUNT (AUTO) 258 K/uL (150-450); RED BLOOD CELL COUNT(AUTO) 4.21 MIL/uL (4.50-5.90); RED CELL DISTRIBUTION WIDTH 15.2 % (11.5-14.5)
[2022-11-24 13:12] LABS: ANION GAP 8 mmol/L (8-16); CALCIUM, TOTAL 9.4 mg/dL (8.8-10.5); CARBON DIOXIDE 29 mmol/L (22-29); CHLORIDE 98 mmol/L (98-107); CREATININE 0.74 mg/dL (0.60-1.30); GLOMERULAR FILTR. RATE CALC > 60 mL/min (>60); GLUCOSE,RANDOM 110 mg/dL (70-110); SODIUM SERUM 135 mmol/L (136-145); UREA NITROGEN, BLOOD 23 mg/dL (7-18)
[2022-11-24 15:40] VITALS: BP 122/74
[2022-11-24 20:33] VITALS: BP 115/74
[2022-11-25] MEDS: HYDROCODONE/ACETAMINOPHEN 5-325 MG TABLET PO PRN ×3 (03:52→20:06)
[2022-11-25 04:01] VITALS: BP 131/78
[2022-11-25] MEDS: OMEPRAZOLE 20 MG CAPSULE PO SCH (05:34)
[2022-11-25] MEDS: LEVOTHYROXINE SODIUM 125 MCG TABLET PO SCH (05:34)
[2022-11-25 08:03] VITALS: BP 109/72
[2022-11-25] MEDS: RisperiDONE CONC 1 MG/ML SOLUTION ORAL.SYG PO SCH ×2 (08:52→20:07)
[2022-11-25] MEDS: LevETIRAcetam 100 MG/ML 5 ML SOLUTION UDCUP PO SCH ×2 (08:52→20:07)
[2022-11-25] MEDS: ETHYL ALCOHOL 62% ANTISEPTIC NASAL SANITIZER 0.6 ML AMPUL NASAL SCH ×2 (08:53→20:06)
[2022-11-25] MEDS: FOLIC ACID 1 MG TABLET PO SCH (08:53)
[2022-11-25] MEDS: THIAMINE 100 MG TABLET PO SCH (08:53)
[2022-11-25] MEDS: BUDESONIDE 0.5 MG/2 ML NEB SOLUTION NEB SCH ×2 (08:53→21:00)
[2022-11-25] MEDS: MULTIVITAMINS WITH MINERALS, THERAPEUTIC TABLET PO SCH (08:53)
[2022-11-25] MEDS: DOCUSATE SODIUM 100 MG CAPSULE PO SCH ×2 (08:53→20:06)
[2022-11-25] MEDS: HEPARIN SODIUM,PORCINE 5,000 UNITS/ML VIAL SQ SCH ×2 (08:53→17:03)
[2022-11-25 16:32] VITALS: BP 110/72
[2022-11-25 16:56] LABS: APPEARANCE,URINE HAZY (CLEAR); BILIRUBIN,URINE NEGATIVE (NEGATIVE); GLUCOSE, URINE (UA) NEGATIVE (NEGATIVE); KETONES,URINE NEGATIVE (NEGATIVE); LEUKOCYTE ESTERASE ,URINE LARGE (NEGATIVE); NITRATE,URINE POSITIVE (NEGATIVE); OCCULT BLOOD,URINE NEGATIVE (NEGATIVE); PROTEIN,URINE TRACE mg/dL (NEGATIVE); SPECIFIC GRAVITIY, URINE 1.026 (1.003-1.030); UROBILINOGEN,URINE <=1.0 mg/dL (<=1.0)
[2022-11-25 17:13] LABS: BACTERIA,URINE Many /HPF (None Seen); RBC,URINE None Seen /HPF (0-2); SQUAMOUS EPITHELIAL CELL,UR Few /LPF (None Seen); WBC,URINE 51-100 /HPF (0-5)
[2022-11-25 20:07] VITALS: BP 110/70
[2022-11-26] MEDS: HEPARIN SODIUM,PORCINE 5,000 UNITS/ML VIAL SQ SCH ×4 (00:45→22:58)
[2022-11-26] MEDS: OMEPRAZOLE 20 MG CAPSULE PO SCH (06:05)
[2022-11-26] MEDS: LEVOTHYROXINE SODIUM 125 MCG TABLET PO SCH (06:05)
[2022-11-26] MEDS: BUDESONIDE 0.5 MG/2 ML NEB SOLUTION NEB SCH ×2 (07:39→21:00)
[2022-11-26 08:05] LABS: BASOPHILS % (AUTO) 0.3 % (0.0-2.0); EOSINOPHILS % (AUTO) 3.6 % (1.0-6.0); HEMATOCRIT 34.7 % (41-53); HEMOGLOBIN 11.4 g/dL (13.5-17.5); LYMPHOCYTES # (AUTO) 1.6 K/uL (1.0-4.8); LYMPHOCYTES % (AUTO) 19.5 % (22.0-44.0); MEAN CORPUSCULAR HEMOGLOBIN 27.4 pg (26.0-34.0); MEAN CORPUSCULAR HGB CONC 32.8 G/dL (31.0-37.0); MEAN CORPUSCULAR VOLUME 84 fL (80-100); MONOCYTES # (AUTO) 0.7 K/uL (0.1-1.0); NEUTROPHILS # (AUTO) 5.7 K/uL (1.8-7.7); NEUTROPHILS % (AUTO) 67.6 % (40.0-70.0); PLATELET COUNT (AUTO) 264 K/uL (150-450); RED BLOOD CELL COUNT(AUTO) 4.15 MIL/uL (4.50-5.90)
[2022-11-26] MEDS: FOLIC ACID 1 MG TABLET PO SCH (09:28)
[2022-11-26] MEDS: THIAMINE 100 MG TABLET PO SCH (09:28)
[2022-11-26] MEDS: MULTIVITAMINS WITH MINERALS, THERAPEUTIC TABLET PO SCH (09:28)
[2022-11-26] MEDS: DOCUSATE SODIUM 100 MG CAPSULE PO SCH ×2 (09:28→20:58)
[2022-11-26] MEDS: ETHYL ALCOHOL 62% ANTISEPTIC NASAL SANITIZER 0.6 ML AMPUL NASAL SCH ×2 (09:28→20:58)
[2022-11-26] MEDS: LevETIRAcetam 100 MG/ML 5 ML SOLUTION UDCUP PO SCH ×2 (09:28→20:58)
[2022-11-26] MEDS: RisperiDONE CONC 1 MG/ML SOLUTION ORAL.SYG PO SCH ×2 (09:28→20:58)
[2022-11-26 09:37] VITALS: BP 105/63
[2022-11-26 16:33] VITALS: BP 131/73
[2022-11-26 20:14] VITALS: BP 139/77
[2022-11-26] MEDS: HYDROCODONE/ACETAMINOPHEN 5-325 MG TABLET PO PRN (22:08)
[2022-11-27 05:03] VITALS: BP 121/66
[2022-11-27] MEDS: LEVOTHYROXINE SODIUM 125 MCG TABLET PO SCH (05:56)
[2022-11-27] MEDS: OMEPRAZOLE 20 MG CAPSULE PO SCH (05:56)
[2022-11-27] MEDS: BUDESONIDE 0.5 MG/2 ML NEB SOLUTION NEB SCH ×2 (07:38→19:25)
[2022-11-27 08:00] VITALS: BP 109/60
[2022-11-27] MEDS: THIAMINE 100 MG TABLET PO SCH (08:42)
[2022-11-27] MEDS: MULTIVITAMINS WITH MINERALS, THERAPEUTIC TABLET PO SCH (08:42)
[2022-11-27] MEDS: HEPARIN SODIUM,PORCINE 5,000 UNITS/ML VIAL SQ SCH ×3 (08:42→23:18)
[2022-11-27] MEDS: DOCUSATE SODIUM 100 MG CAPSULE PO SCH ×2 (08:42→20:43)
[2022-11-27] MEDS: FOLIC ACID 1 MG TABLET PO SCH (08:42)
[2022-11-27] MEDS: SCOPOLAMINE HYDROBROMIDE 1 MG/72 HOUR PATCH TP SCH (08:44)
[2022-11-27] MEDS: RisperiDONE CONC 1 MG/ML SOLUTION ORAL.SYG PO SCH ×2 (08:44→20:43)
[2022-11-27] MEDS: LevETIRAcetam 100 MG/ML 5 ML SOLUTION UDCUP PO SCH ×2 (08:44→20:43)
[2022-11-27] MEDS ORDERED: RISP1TAB48 PO (10:27)
[2022-11-27] MEDS ORDERED: OMEP20 PO (10:29)
[2022-11-27 16:00] VITALS: BP 126/73
[2022-11-27] MEDS: HYDROCODONE/ACETAMINOPHEN 5-325 MG TABLET PO PRN (20:44)
[2022-11-27 20:57] VITALS: BP 132/81
[2022-11-27] MEDS: ACETAMINOPHEN 325 MG TABLET PO PRN (23:03)
[2022-11-28 04:16] VITALS: BP 130/81
[2022-11-28] MEDS: HYDROCODONE/ACETAMINOPHEN 5-325 MG TABLET PO PRN (04:42)
[2022-11-28] MEDS: OMEPRAZOLE 20 MG CAPSULE PO SCH (06:16)
[2022-11-28] MEDS: LEVOTHYROXINE SODIUM 125 MCG TABLET PO SCH (06:16)
[2022-11-28 08:00] VITALS: BP 114/53
[2022-11-28] MEDS: RisperiDONE CONC 1 MG/ML SOLUTION ORAL.SYG PO SCH ×2 (08:23→20:12)
[2022-11-28] MEDS: LevETIRAcetam 100 MG/ML 5 ML SOLUTION UDCUP PO SCH ×2 (08:24→20:12)
[2022-11-28] MEDS: THIAMINE 100 MG TABLET PO SCH (08:25)
[2022-11-28] MEDS: DOCUSATE SODIUM 100 MG CAPSULE PO SCH ×2 (08:25→20:12)
[2022-11-28] MEDS: FOLIC ACID 1 MG TABLET PO SCH (08:25)
[2022-11-28] MEDS: MULTIVITAMINS WITH MINERALS, THERAPEUTIC TABLET PO SCH (08:25)
[2022-11-28] MEDS: HEPARIN SODIUM,PORCINE 5,000 UNITS/ML VIAL SQ SCH ×3 (08:26→23:16)
[2022-11-28 08:59] VITALS: BP 109/63
[2022-11-28] MEDS: BUDESONIDE 0.5 MG/2 ML NEB SOLUTION NEB SCH ×2 (09:22→20:45)
[2022-11-28 16:34] VITALS: BP 117/67
[2022-11-28 19:38] VITALS: BP 126/76
[2022-11-29 04:49] VITALS: BP 111/64
[2022-11-29] MEDS: LEVOTHYROXINE SODIUM 125 MCG TABLET PO SCH (05:49)
[2022-11-29] MEDS: OMEPRAZOLE 20 MG CAPSULE PO SCH (05:49)
[2022-11-29 07:27] VITALS: BP 112/68
[2022-11-29] MEDS: LevETIRAcetam 100 MG/ML 5 ML SOLUTION UDCUP PO SCH ×2 (08:10→20:06)
[2022-11-29] MEDS: HEPARIN SODIUM,PORCINE 5,000 UNITS/ML VIAL SQ SCH ×3 (08:10→23:03)
[2022-11-29] MEDS: MULTIVITAMINS WITH MINERALS, THERAPEUTIC TABLET PO SCH (08:10)
[2022-11-29] MEDS: RisperiDONE CONC 1 MG/ML SOLUTION ORAL.SYG PO SCH ×2 (08:10→20:06)
[2022-11-29] MEDS: DOCUSATE SODIUM 100 MG CAPSULE PO SCH ×2 (08:10→20:06)
[2022-11-29] MEDS: THIAMINE 100 MG TABLET PO SCH (08:10)
[2022-11-29] MEDS: FOLIC ACID 1 MG TABLET PO SCH (08:10)
[2022-11-29] MEDS: BUDESONIDE 0.5 MG/2 ML NEB SOLUTION NEB SCH ×2 (08:28→20:46)
[2022-11-29] MEDS: HYDROCODONE/ACETAMINOPHEN 5-325 MG TABLET PO PRN (12:33)
[2022-11-29 15:20] VITALS: BP 111/68
[2022-11-29 20:10] VITALS: BP 135/74
[2022-11-30 04:03] VITALS: BP 123/69
[2022-11-30] MEDS: OMEPRAZOLE 20 MG CAPSULE PO SCH (06:15)
[2022-11-30] MEDS: LEVOTHYROXINE SODIUM 125 MCG TABLET PO SCH (06:15)
[2022-11-30 07:40] VITALS: BP 139/83
[2022-11-30] MEDS: BUDESONIDE 0.5 MG/2 ML NEB SOLUTION NEB SCH ×2 (08:04→20:22)
[2022-11-30] MEDS: RisperiDONE CONC 1 MG/ML SOLUTION ORAL.SYG PO SCH ×2 (09:09→20:16)
[2022-11-30] MEDS: FOLIC ACID 1 MG TABLET PO SCH (09:10)
[2022-11-30] MEDS: SCOPOLAMINE HYDROBROMIDE 1 MG/72 HOUR PATCH TP SCH (09:10)
[2022-11-30] MEDS: MULTIVITAMINS WITH MINERALS, THERAPEUTIC TABLET PO SCH (09:10)
[2022-11-30] MEDS: DOCUSATE SODIUM 100 MG CAPSULE PO SCH ×2 (09:10→20:16)
[2022-11-30] MEDS: HEPARIN SODIUM,PORCINE 5,000 UNITS/ML VIAL SQ SCH ×3 (09:10→23:18)
[2022-11-30] MEDS: LevETIRAcetam 100 MG/ML 5 ML SOLUTION UDCUP PO SCH ×2 (09:10→20:16)
[2022-11-30] MEDS: THIAMINE 100 MG TABLET PO SCH (09:13)
[2022-11-30 15:26] VITALS: BP 104/73
[2022-11-30 19:40] VITALS: BP 110/72
[2022-12-01 04:00] VITALS: BP 107/63
[2022-12-01] MEDS: HYDROCODONE/ACETAMINOPHEN 5-325 MG TABLET PO PRN (04:23)
[2022-12-01] MEDS: LEVOTHYROXINE SODIUM 125 MCG TABLET PO SCH (05:46)
[2022-12-01] MEDS: OMEPRAZOLE 20 MG CAPSULE PO SCH (05:46)
[2022-12-01] MEDS: BUDESONIDE 0.5 MG/2 ML NEB SOLUTION NEB SCH ×2 (07:45→21:00)
[2022-12-01 07:47] LABS: BASOPHILS % (AUTO) 0.5 % (0.0-2.0); EOSINOPHILS % (AUTO) 4.8 % (1.0-6.0); HEMATOCRIT 37.4 % (41-53); HEMOGLOBIN 12.1 g/dL (13.5-17.5); LYMPHOCYTES # (AUTO) 1.6 K/uL (1.0-4.8); LYMPHOCYTES % (AUTO) 26.3 % (22.0-44.0); MEAN CORPUSCULAR HEMOGLOBIN 26.8 pg (26.0-34.0); MEAN CORPUSCULAR HGB CONC 32.3 G/dL (31.0-37.0); MEAN CORPUSCULAR VOLUME 83 fL (80-100); MONOCYTES # (AUTO) 0.8 K/uL (0.1-1.0); MONOCYTES % (AUTO) 13.4 % (2.0-9.0); NEUTROPHILS # (AUTO) 3.4 K/uL (1.8-7.7); PLATELET COUNT (AUTO) 313 K/uL (150-450); RED BLOOD CELL COUNT(AUTO) 4.52 MIL/uL (4.50-5.90); RED CELL DISTRIBUTION WIDTH 15.2 % (11.5-14.5)
[2022-12-01 08:02] LABS: ANION GAP 6 mmol/L (8-16); CALCIUM, TOTAL 9.9 mg/dL (8.8-10.5); CARBON DIOXIDE 30 mmol/L (22-29); CHLORIDE 101 mmol/L (98-107); CREATININE 0.65 mg/dL (0.60-1.30); GLOMERULAR FILTR. RATE CALC > 60 mL/min (>60); GLUCOSE,RANDOM 73 mg/dL (70-110); POTASSIUM 4.3 mmol/L (3.5-5.1); SODIUM SERUM 137 mmol/L (136-145); UREA NITROGEN, BLOOD 25 mg/dL (7-18)
[2022-12-01] MEDS: FOLIC ACID 1 MG TABLET PO SCH (08:46)
[2022-12-01] MEDS: MULTIVITAMINS WITH MINERALS, THERAPEUTIC TABLET PO SCH (08:47)
[2022-12-01] MEDS: HEPARIN SODIUM,PORCINE 5,000 UNITS/ML VIAL SQ SCH ×3 (08:47→23:10)
[2022-12-01] MEDS: DOCUSATE SODIUM 100 MG CAPSULE PO SCH ×2 (08:47→20:09)
[2022-12-01] MEDS: LevETIRAcetam 100 MG/ML 5 ML SOLUTION UDCUP PO SCH ×2 (08:47→20:09)
[2022-12-01] MEDS: THIAMINE 100 MG TABLET PO SCH (08:47)
[2022-12-01] MEDS: RisperiDONE CONC 1 MG/ML SOLUTION ORAL.SYG PO SCH ×2 (08:47→20:09)
[2022-12-01 09:44] VITALS: BP 100/65
[2022-12-01 16:29] VITALS: BP 95/70
[2022-12-01 19:25] VITALS: BP 143/66
[2022-12-02 03:08] VITALS: BP 144/83
[2022-12-02] MEDS: LEVOTHYROXINE SODIUM 125 MCG TABLET PO SCH (05:24)
[2022-12-02] MEDS: OMEPRAZOLE 20 MG CAPSULE PO SCH (05:24)
[2022-12-02] MEDS: BUDESONIDE 0.5 MG/2 ML NEB SOLUTION NEB SCH ×2 (08:09→20:13)
[2022-12-02] MEDS: MULTIVITAMINS WITH MINERALS, THERAPEUTIC TABLET PO SCH (08:13)
[2022-12-02] MEDS: THIAMINE 100 MG TABLET PO SCH (08:13)
[2022-12-02] MEDS: RisperiDONE CONC 1 MG/ML SOLUTION ORAL.SYG PO SCH ×2 (08:13→21:15)
[2022-12-02] MEDS: FOLIC ACID 1 MG TABLET PO SCH (08:13)
[2022-12-02] MEDS: HEPARIN SODIUM,PORCINE 5,000 UNITS/ML VIAL SQ SCH ×3 (08:13→23:12)
[2022-12-02] MEDS: LevETIRAcetam 100 MG/ML 5 ML SOLUTION UDCUP PO SCH ×2 (08:13→21:15)
[2022-12-02] MEDS: DOCUSATE SODIUM 100 MG CAPSULE PO SCH ×2 (08:14→21:00)
[2022-12-02 09:32] VITALS: BP 139/88
[2022-12-02 15:22] VITALS: BP 115/71
[2022-12-02 20:38] VITALS: BP 100/62
[2022-12-03 03:43] VITALS: BP 123/77
[2022-12-03] MEDS: HYDROCODONE/ACETAMINOPHEN 5-325 MG TABLET PO PRN (04:22)
[2022-12-03] MEDS: LEVOTHYROXINE SODIUM 125 MCG TABLET PO SCH (06:00)
[2022-12-03] MEDS: OMEPRAZOLE 20 MG CAPSULE PO SCH (06:00)
[2022-12-03] MEDS: BUDESONIDE 0.5 MG/2 ML NEB SOLUTION NEB SCH ×2 (06:56→19:55)
[2022-12-03 08:16] VITALS: BP 155/97
[2022-12-03] MEDS: RisperiDONE CONC 1 MG/ML SOLUTION ORAL.SYG PO SCH ×2 (08:25→21:05)
[2022-12-03] MEDS: LevETIRAcetam 100 MG/ML 5 ML SOLUTION UDCUP PO SCH ×2 (08:25→21:05)
[2022-12-03] MEDS: MULTIVITAMINS WITH MINERALS, THERAPEUTIC TABLET PO SCH (08:25)
[2022-12-03] MEDS: FOLIC ACID 1 MG TABLET PO SCH (08:26)
[2022-12-03] MEDS: HEPARIN SODIUM,PORCINE 5,000 UNITS/ML VIAL SQ SCH ×3 (08:26→23:36)
[2022-12-03] MEDS: THIAMINE 100 MG TABLET PO SCH (08:26)
[2022-12-03] MEDS: SCOPOLAMINE HYDROBROMIDE 1 MG/72 HOUR PATCH TP SCH (08:26)
[2022-12-03] MEDS: DOCUSATE SODIUM 100 MG CAPSULE PO SCH ×2 (08:26→21:00)
[2022-12-03 16:20] VITALS: BP_SYST 155; BP_SYST 98; BP_DIAS 67; BP_DIAS 97
[2022-12-03 19:46] VITALS: BP 142/79
[2022-12-04 03:55] VITALS: BP 144/76
[2022-12-04] MEDS: LEVOTHYROXINE SODIUM 125 MCG TABLET PO SCH (05:35)
[2022-12-04] MEDS: OMEPRAZOLE 20 MG CAPSULE PO SCH (05:38)
[2022-12-04 07:29] VITALS: BP 115/70
[2022-12-04] MEDS: BUDESONIDE 0.5 MG/2 ML NEB SOLUTION NEB SCH ×2 (08:26→20:58)
[2022-12-04] MEDS: RisperiDONE CONC 1 MG/ML SOLUTION ORAL.SYG PO SCH ×2 (08:59→20:08)
[2022-12-04] MEDS: FOLIC ACID 1 MG TABLET PO SCH (08:59)
[2022-12-04] MEDS: THIAMINE 100 MG TABLET PO SCH (08:59)
[2022-12-04] MEDS: MULTIVITAMINS WITH MINERALS, THERAPEUTIC TABLET PO SCH (08:59)
[2022-12-04] MEDS: HEPARIN SODIUM,PORCINE 5,000 UNITS/ML VIAL SQ SCH ×3 (08:59→23:12)
[2022-12-04] MEDS: DOCUSATE SODIUM 100 MG CAPSULE PO SCH ×2 (08:59→20:09)
[2022-12-04] MEDS: LevETIRAcetam 100 MG/ML 5 ML SOLUTION UDCUP PO SCH ×2 (08:59→20:08)
[2022-12-04 16:36] VITALS: BP 138/72
[2022-12-04 19:30] VITALS: BP 142/89
[2022-12-04] MEDS: HYDROCODONE/ACETAMINOPHEN 5-325 MG TABLET PO PRN (20:08)
[2022-12-05] MEDS: HYDROCODONE/ACETAMINOPHEN 5-325 MG TABLET PO PRN ×2 (01:37→05:54)
[2022-12-05 04:00] VITALS: BP 120/77
[2022-12-05] MEDS: LEVOTHYROXINE SODIUM 125 MCG TABLET PO SCH (05:54)
[2022-12-05] MEDS: OMEPRAZOLE 20 MG CAPSULE PO SCH (05:54)
[2022-12-05] MEDS: BUDESONIDE 0.5 MG/2 ML NEB SOLUTION NEB SCH ×2 (07:42→21:41)
[2022-12-05 08:13] VITALS: BP 122/78
[2022-12-05] MEDS: LevETIRAcetam 100 MG/ML 5 ML SOLUTION UDCUP PO SCH ×2 (08:43→21:03)
[2022-12-05] MEDS: MULTIVITAMINS WITH MINERALS, THERAPEUTIC TABLET PO SCH (08:43)
[2022-12-05] MEDS: HEPARIN SODIUM,PORCINE 5,000 UNITS/ML VIAL SQ SCH ×3 (08:43→23:24)
[2022-12-05] MEDS: RisperiDONE CONC 1 MG/ML SOLUTION ORAL.SYG PO SCH ×2 (08:43→21:03)
[2022-12-05] MEDS: THIAMINE 100 MG TABLET PO SCH (08:43)
[2022-12-05] MEDS: FOLIC ACID 1 MG TABLET PO SCH (08:43)
[2022-12-05] MEDS: DOCUSATE SODIUM 100 MG CAPSULE PO SCH ×2 (08:43→21:03)
[2022-12-05 19:50] VITALS: BP 108/67
[2022-12-06 04:49] VITALS: BP 111/69
[2022-12-06] MEDS: LEVOTHYROXINE SODIUM 125 MCG TABLET PO SCH (05:39)
[2022-12-06] MEDS: OMEPRAZOLE 20 MG CAPSULE PO SCH (05:39)
[2022-12-06 08:19] VITALS: BP 135/76
[2022-12-06] MEDS: DOCUSATE SODIUM 100 MG CAPSULE PO SCH (09:00)
[2022-12-06] MEDS: BUDESONIDE 0.5 MG/2 ML NEB SOLUTION NEB SCH (09:00)
[2022-12-06] MEDS: HEPARIN SODIUM,PORCINE 5,000 UNITS/ML VIAL SQ SCH (10:23)
[2022-12-06] MEDS: FOLIC ACID 1 MG TABLET PO SCH (10:24)
[2022-12-06] MEDS: RisperiDONE CONC 1 MG/ML SOLUTION ORAL.SYG PO SCH (10:24)
[2022-12-06] MEDS: LevETIRAcetam 100 MG/ML 5 ML SOLUTION UDCUP PO SCH (10:24)
[2022-12-06] MEDS: SCOPOLAMINE HYDROBROMIDE 1 MG/72 HOUR PATCH TP SCH (10:25)
[2022-12-06] MEDS: MULTIVITAMINS WITH MINERALS, THERAPEUTIC TABLET PO SCH (10:25)
[2022-12-06] MEDS: THIAMINE 100 MG TABLET PO SCH (10:25)
[2022-12-06 16:34] VITALS: BP_SYST 110; BP_SYST 135; BP_DIAS 73; BP_DIAS 76
== END 2022-12-06 16:00 | disposition home or self-care (01) | DRG 871 ==
LOC: ICU 21:45 → 6S 10-25 19:45
PROVIDERS: ADMIT Internal Medicine; ATTEND Internal Medicine
DX: A41.9 Sepsis, unspecified organism (principal); E43 Unspecified severe protein-calorie malnutrition; J69.0 Pneumonitis due to inhalation of food and vomit; J96.01 Acute respiratory failure with hypoxia; F20.0 Paranoid schizophrenia; J98.11 Atelectasis; Z20.822 Contact with and (suspected) exposure to COVID-19; E11.9 Type 2 diabetes mellitus without complications; R62.7 Adult failure to thrive; K46.9 Unspecified abdominal hernia without obstruction or gangrene; J44.9 Chronic obstructive pulmonary disease, unspecified; Z60.8 Other problems related to social environment; G40.909 Epilepsy, unspecified, not intractable, without status epilepticus; E03.9 Hypothyroidism, unspecified; I95.9 Hypotension, unspecified; Z93.0 Tracheostomy status; Z85.89 Personal history of malignant neoplasm of other organs and systems; Z78.1 Physical restraint status; Z91.199 Patient's noncompliance with other medical treatment and regimen due to unspecified reason; Z79.899 Other long term (current) drug therapy; Z68.24 Body mass index [BMI] 24.0-24.9, adult; Z88.0 Allergy status to penicillin
CPT/HCPCS: 36600; 71045; 71250; 80048; 80053; 81001; 82805; 82962; 83036; 83735; 84100; 84443; 85025; 87081; 87086; 87186; 92507; 92526; 92610; 94640; 97110; 97112; 97162; 97166; 97530; 97535; G0378; J1644; J2270; J3411; J3475; J3490; J7030; J7050; 36415-L1; 36415-TC; J7613